=== PATIENT | male | born 1965 | race Caucasian/White ===

== ENCOUNTER 2018-03-29 08:07 | Emergency (ER) | payer BC ==
[2018-03-29 08:27] VITALS: BP 134/92
[2018-03-29] MEDS ORDERED: Acetaminophen 325 MG Tab PO ONE (08:42)
--- NOTE | 2018-03-29 09:28 | CT ---
CT abdomen and pelvis Technique: Multiple axial sections were obtained from above the dome of the diaphragm inferiorly through the pubic symphysis. Intravenous and oral contrast was not utilized. Study has been performed as a ureteral stone protocol. Findings: Kidneys show no abnormal calcifications. No ureteral dilatation or ureteral stone is seen. Inflammatory change is identified around a portion of the sigmoid colon. There is bowel wall thickening being seen within this portion of sigmoid colon. Findings most likely due to diverticulitis although endoscopy will be suggested. Slightly prominent lymph nodes are seen around the sigmoid colon. Proximal appendix slightly prominent in thickness at 9 mm. Distal end of appendix is normal in size measuring 5 mm. No inflammatory change is seen around the appendix. Visualized lung bases shows nothing acute. Noncontrast appearance of the liver appears within normal limits. Gallbladder contains no calcified gallstones. Spleen shows small calcified splenic granuloma which is incidental. Adrenal glands show no nodule. Pancreas appears within normal limits. Aorta shows atherosclerotic calcification which continues into the iliac vessels. No retroperitoneal adenopathy or mesenteric abnormalities are seen. No pelvic mass is seen. Bone window settings were reviewed which shows disc space narrowing and vacuum phenomena within the L4-L5 and L5-S1 disks. Bilateral spondylitic defects are seen at L5-S1. Impression: 1. Bowel wall thickening and inflammatory change within and around portion of the sigmoid colon. Adjacent enlarged lymph nodes are seen around this portion of colon. Findings most likely due to diverticulitis, although endoscopy is strongly recommended to exclude an carcinoma. 2. Prominent size of the base of the appendix with distal end of the appendix appearing normal. This is most likely due to normal variant as no inflammatory change is seen around the appendix. In addition, it appears that the patient has left-sided symptoms. 3. No renal calculi, ureteral dilatation or ureteral stone is seen. 4. Other incidental findings. Diagnostic code #9
--- NOTE | 2018-03-29 09:46 | EDM.PDOC ---
ED HPI GENERAL MEDICAL PROBLEM - General Chief Complaint: Back Pain or Injury Stated Complaint: KIDNEY PAIN Time Seen by Provider: 03/29/18 08:40 Source of Information: Reports: Patient, RN Notes Reviewed - History of Present Illness INITIAL COMMENTS - FREE TEXT/NARRATIVE: 52-year-old male comes in with primarily left low back pain that has been getting worse, not going away. First started about a week ago area he is not aware of any particular injury. 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 He is had some occasional chills, one episode of mild nausea but no vomiting or diarrhea. No obvious fever. No voiding symptomatology. Pain is pretty steady may be slightly worse with motion but does not go away at rest. There has not been any significant abdominal pain. No radiation of pain down either leg. Bilateral Lower Back Pain Score (Numeric/FACES): 3 - Related Data Allergies Allergy/AdvReac Type Severity Reaction Status Date / Time No Known Allergies Allergy Verified 03/29/18 08:21 Home Meds: Home Meds Cholecalciferol (Vitamin D3) [Vitamin D3] 2,000 unit PO DAILY 11/01/15 [History] Glucosamine/D3/Boswellia Priscilla [Osteo Bi-Flex Caplet] 1 tab PO DAILY 11/01/15 [ History] Levofloxacin [Levaquin] 500 mg PO DAILY #10 tablet 03/29/18 [Rx] metroNIDAZOLE [Flagyl] 500 mg PO Q8H #30 tab 03/29/18 [Rx] Past Medical History - Past Health History Medical/Surgical History: Denies Medical/Surgical History HEENT History: Reports: Allergic Rhinitis, Sinusitis Cardiovascular History: Reports: None Other Respiratory History: Severe snoring without apnea Gastrointestinal History: Reports: GERD Genitourinary History: Reports: None Musculoskeletal History: Reports: Arthritis Neurological History: Reports: None Psychiatric History: Reports: None Endocrine/Metabolic History: Reports: Obesity/BMI 30+ Social & Family History - Tobacco Use Smoking Status *Q: Current Every Day Smoker Years of Tobacco use: 20 Packs/Tins Daily: 0.5 - Caffeine Use Caffeine Use: Reports: Coffee, Energy Drinks ED ROS GENERAL - Review of Systems Review Of Systems: See Below Constitutional: Reports: Chills. Denies: Fever, Diaphoresis (Gone) HEENT: Reports: No Symptoms Respiratory: Denies: Shortness of Breath Cardiovascular: Denies: Chest Pain GI/Abdominal: Reports: Nausea. Denies: Abdominal Pain, Constipation, Diarrhea, Hematochezia, Melena, Vomiting (Gone) : Reports: No Symptoms Musculoskeletal: Reports: Back Pain (Primarily left low back) Skin: Reports: No Symptoms Neurological: Reports: No Symptoms ED EXAM,LOWER BACK PAIN/INJURY - Physical Exam Exam: See Below General Appearance: Alert, Mild Distress Eye Exam: Bilateral Eye: PERRL Throat/Mouth: Normal Inspection Head: Atraumatic Neck: Supple Respiratory/Chest: No Respiratory Distress, Lungs Clear, Normal Breath Sounds Cardiovascular: Regular Rate, Rhythm GI/Abdominal: Soft, Tender (For mild tenderness left lower abdomen, abdomen otherwise soft and nontender). No: Guarding, Rebound Extremities: Normal Inspection, Normal Range of Motion Neurological: Alert, No Motor/Sensory Deficits, Oriented x 3 Skin Exam: Warm, Dry, Normal Color Course - Vital Signs Last Recorded V/S: Last Vital Signs Temp 98.4 F 03/29/18 08:23 Pulse 105 H 03/29/18 08:23 Resp 13 03/29/18 08:23 BP 134/92 H 03/29/18 08:23 Pulse Ox 98 03/29/18 08:23 - Orders/Labs/Meds Labs: Laboratory Tests 03/29/18 Range/Units 08:51 Urine Color Yellow (Yellow) Urine Appearance Clear (Clear) Urine pH 6.0 (5.0-8.0) Ur Specific [place] 1.025 (1.005-1.030) Urine Protein Negative (Negative) Urine Glucose (UA) Negative (Negative) Urine Ketones Negative (Negative) Urine Occult Blood Negative (Negative) Urine Nitrite Negative (Negative) Urine Bilirubin Negative (Negative) Urine Urobilinogen 0.2 (0.2-1.0) Ur Leukocyte Esterase Negative (Negative) Urine RBC 0-5 (0-5) /hpf Urine WBC Not seen (0-5) /hpf Ur Epithelial Cells 0-5 (0-5) /hpf Urine Bacteria Not seen (FEW) /hpf Urine Mucus Few (FEW) /hpf Meds: Medications Discontinued Medications Generic Name Dose Route Start Last Admin Trade Name Freq PRN Reason Stop Dose Admin Acetaminophen 975 mg 03/29/18 08:42 03/29/18 08:47 Tylenol PO 03/29/18 08:43 975 mg NOW ONE Administration - Re-Assessments/Exams Free Text/Narrative Re-Assessment/Exam: 03/29/18 10:14 Discomfort was bad enough that his states he's spent yesterday "in bed" which would be very atypical for him. I felt CT scan necessary to rule out kidney stone or other pathology left back or abdomen. No evidence for a stone but he does have inflammatory change around an area of the sigmoid colon was some bowel wall thickening. Findings most likely due to diverticulitis but need to consider that this could represent early carcinoma. I did discuss this with Dr. Willis, surgeon internal combustion engine subassembler for us this weekend. Recommend treating the diverticulitis and then follow-up colonoscopy within 3-4 weeks as recommended also by radiologist. See radiology report for details. We'll start him on Levaquin and Flagyl. Discharge instructions as documented. Departure - Departure Time of Disposition: 10:03 Disposition: Home, Self-Care 01 Condition: Fair Clinical Impression: Diverticulitis - Discharge Information Prescriptions: Levofloxacin [Levaquin] 500 mg PO DAILY #10 tablet metroNIDAZOLE [Flagyl] 500 mg PO Q8H #30 tab Instructions: Diverticulitis, [id number] Referrals: PCP,None [Primary Care Provider] - Forms: ED Department Discharge, ED Return to Work/School Form Additional Instructions: Clear liquids and bland diet as tolerated, better to eat small amounts somewhat frequently, drink plenty of water to maintain hydration. Levaquin 500 mg daily for 10 days. Flagyl 500 mg 3 times daily also for 10 days. As discussed we want to treat the infection, inflammation now but you do need a follow-up colonoscopy in the next 3-4 weeks to rule out malignancy which is the other possibility that cannot be totally ruled out on the basis of the CT exam done today. I do recommend following up with Dr. Koch at [facility] or one of the surgeons at [facility] that will be able to do that for you. Call [phone] for appointment to see provider in about 5-7 days or next available appointment. If not able to get a timely appointment with one of these providers see one of our medical providers at our [facility] later next week, call [phone] for appointment. Return to ED as needed if symptoms worsening in any way.
== END 2018-03-29 10:30 | disposition home or self-care (01) ==
LOC: JD.ED 08:07
DX: K57.32 Diverticulitis of large intestine without perforation or abscess without bleeding (principal); K21.9 Gastro-esophageal reflux disease without esophagitis; F17.210 Nicotine dependence, cigarettes, uncomplicated; Z79.899 Other long term (current) drug therapy
CPT/HCPCS: 74176; 81001; 99284; A9270; 99283

== ENCOUNTER 2018-05-13 09:58 | Day surgery (SDC) | payer BC ==
[~2018-05-13 09:58] MED LIST: Lactated Ringers 1,000 ML IV SCH; Lidocaine 1% 4 ML ONE; Lidocaine 1%/Sod Bicarbonate in NS 8.4% 1 ML Syringe IDERM PRN; Midazolam 1 MG/ML 2 ML SDV ONE; Propofol 200 MG/20 ML SDV ONE; Sodium Chloride 0.9% 10 ML Syringe FLUSH PRN; fentaNYL 100 MCG/2 ML SDV ONE
--- NOTE | 2018-05-13 10:41 | PCM.PREANE ---
Preanesthetic Assessment - Anesthesia/Transfusion/Family Hx Anesthesia History: Prior Anesthesia Without Reaction Family History of Anesthesia Reaction: No Transfusion History: No Prior Transfusion(s) - Review of Systems General: No Symptoms Pulmonary: Other (smoker, 1/2 ppd. last smoked at 9 am) Cardiovascular: No Symptoms Gastrointestinal: Other (s/p divericulitis) - Physical Assessment NPO Status Date: 05/13/18 NPO Status Time: 05:00 Pulse: 82 O2 Sat by Pulse Oximetry: 96 Respiratory Rate: 16 Blood Pressure: 133/80 Vital Signs: Last Vital Signs Temp 36.3 C 05/13/18 10:15 Pulse 82 05/13/18 10:15 Resp 16 05/13/18 10:15 BP 133/80 05/13/18 10:15 Pulse Ox 96 05/13/18 10:15 Weight: 90.945 kg ASA Class: 2 Mental Status: Alert & Oriented x3 Airway Class: Mallampati = 2 Dentition: Reports: Normal Dentition Thyro-Mental Finger Breadths: 3 Mouth Opening Finger Breadths: 3 ROM/Head Extension: Full Lungs: Clear to Auscultation, Normal Respiratory Effort Cardiovascular: Regular Rate, Regular Rhythm - Allergies Allergies/Adverse Reactions: Allergies Allergy/AdvReac Type Severity Reaction Status Date / Time No Known Allergies Allergy Verified 05/12/18 15:41 - Blood Blood Available: No Product(s) Available: None - Anesthesia Plan Pre-Op Medication Ordered: None - Acknowledgements Anesthesia Type Planned: MAC Pt an Appropriate Candidate for the Planned Anesthesia: Yes Alternatives and Risks of Anesthesia Discussed w Pt/Guardian: Yes Pt/Guardian Understands and Agrees with Anesthesia Plan: Yes PreAnesthesia Questionnaire - Past Health History Medical/Surgical History: Denies Medical/Surgical History HEENT History: Reports: Allergic Rhinitis, Impaired Vision, Sinusitis Cardiovascular History: Reports: None Other Respiratory History: Severe snoring without apnea Gastrointestinal History: Reports: Diverticulosis, GERD Genitourinary History: Reports: None 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 Musculoskeletal History: Reports: Arthritis, Other (See Below) Other Musculoskeletal History: left meniscus tear, arthritis, left chondromalacia patellae, knee surgery Neurological History: Reports: None Psychiatric History: Reports: None Endocrine/Metabolic History: Reports: Obesity/BMI 30+ Hematologic History: Reports: None Immunologic History: Reports: None Oncologic (Cancer) History: Reports: None Dermatologic History: Reports: None - Past Surgical History Head Surgeries/Procedures: Reports: None Cardiovascular Surgical History: Reports: None Respiratory Surgical History: Reports: None GI Surgical History: Reports: None Female Surgical History: Reports: None Male Surgical History: Reports: None Endocrine Surgical History: Reports: None Neurological Surgical History: Reports: None Musculoskeletal Surgical History: Reports: None - SUBSTANCE USE Smoking Status *Q: Current Every Day Smoker Recreational Drug Use History: No - HOME MEDS Home Medications: Home Meds Cholecalciferol (Vitamin D3) [Vitamin D3] 2,000 unit PO DAILY 11/01/15 [History] Glucosamine/D3/Boswellia Priscilla [Osteo Bi-Flex Caplet] 1 tab PO DAILY 11/01/15 [ History] Bifidobacter. Bifidum/B.Longum [Florajen Bifidoblend] 460 mg PO DAILY 05/12/18 [ History] Calcium Carbonate [Calcium] 500 mg PO DAILY 05/12/18 [History] - CURRENT (IN HOUSE) MEDS Current Meds: Current Medications Lactated Ringer's (Ringers, Lactated) 1,000 mls @ 125 mls/hr IV ASDIRECTED DAVE Stop: 05/13/18 23:00 Lidocaine/Sodium Bicarbonate (Buffered Lidocaine 1% In Ns 8.4%) 0.25 ml IDERM ONETIME PRN PRN Reason: Prior to IV Start Stop: 05/13/18 18:00 Sodium Chloride (Saline Flush) 10 ml FLUSH ASDIRECTED PRN PRN Reason: Keep Vein Open Stop: 05/13/18 18:00 Discontinued Medications Fentanyl (Sublimaze) Confirm Administered Dose 100 mcg .ROUTE .STK-MED ONE Stop: 05/13/18 09:45 Lidocaine HCl (Xylocaine-Mpf 1%) Confirm Administered Dose 4 mls @ as directed .ROUTE .STK-MED ONE Stop: 05/13/18 09:45 Midazolam HCl (Versed 1 Mg/Ml) Confirm Administered Dose 2 mg .ROUTE .STK-MED ONE Stop: 05/13/18 09:45 Propofol (Diprivan 20 Ml) Confirm Administered Dose 200 mg .ROUTE .STK-MED ONE Stop: 05/13/18 09:45
[2018-05-13] MEDS ORDERED: Propofol 200 MG/20 ML SDV ONE ×2 (11:32→11:49)
--- NOTE | 2018-05-13 12:06 | PCM48HPAN ---
Post Anesthesia Note - EVALUATION WITHIN 48HRS OF ANESTHETIC Vital Signs in Normal Range: Yes Patient Participated in Evaluation: Yes Respiratory Function Stable: Yes Airway Patent: Yes Cardiovascular Function Stable: Yes Hydration Status Stable: Yes Pain Control Satisfactory: Yes Nausea and Vomiting Control Satisfactory: Yes Mental Status Recovered: Yes Pulse Rate: 82 SaO2: 95 Resp Rate: 16 Temperature: 36.3 C Blood Pressure: 133/80
--- NOTE | 2018-05-13 12:15 | PCM.OPNOTE ---
- General Post-Op/Procedure Note Date of Surgery/Procedure: 05/13/18 Operative Procedure(s): colonoscopy with biopsy, and tattooing of sigmoid colon lesion Findings: 1) multiple small <5 mm sessile polyps in the cecum, removed by cold forceps polypectomy 2) small <5 mm sessile polyp in the proximal ascending colon, removed by cold forceps polypectomy 3) confluence of polyps in the sigmoid colon (at approximately 45 cm), biopsy obtained and tattooing of the proximal and distal extent Pre Op Diagnosis: recent initial episode of sigmoid diverticulitis Post-Op Diagnosis: mulitple colonic polyps, sigmoid colon lesion Primary Surgeon: Thomas Otto Complications: None Condition: Good Free Text/Narrative:: Indications for surgery: The patient is a 52 yo male, who developed a recent episode of sigmoid colon diverticulitis, initial episode. The patient was consented for colonoscopy with possible biopsy. Indications, risks, and benefits were discussed with the patient in detail. Description of procedure: After surgical consent was verified, the patient was brought to the main OR. A surgical time-out was performed to verify proper patient and proper procedure. Anesthesia performed monitored anesthesia care. A digital rectal exam was performed, which was normal. The colonoscope was inserted into the anus and advanced through the colon to the cecum. The terminal ileum was intubated, and it appeared normal. Location of the cecum was confirmed by presence of the appendiceal orifice and by presence of the ileocecal valve. The scope was then withdrawn, with inspection of the colonic mucosa. There were multiple small polyps <5 mm in the cecum, removed by cold forceps polypectmy There was a small <5 mm sessile polyp in the proximal ascending colon, removed by cold forceps polypectomy. There was a confluence of polyps/mass-like lesion in the sigmoid colon, located at approximately 45 cm from the anus, measuring about 1/4 the circumference of the colonic lumen, non-obstructing. Multiple biopsies were obtained. Carbon tattooing of the mass was performed at the distal and proximal extents. There was no sigmoid diverticulosis. Retroflexion was performed in the rectum. The remainder of the colon and rectum was normal. Withdrawal time was 15 minutes, including time spent performing polypectomies. There was minimal. Prep was good. The patient tolerated the procedure well, was brought out of anesthesia, and transported to the PACU in stable condition. Thomas Otto M.D., F.A.C.S. General Surgery
[2018-05-13 12:33] VITALS: BP 133/70
== END 2018-05-13 12:46 | disposition home or self-care (01) ==
LOC: JD.SDS 09:58
PROVIDERS: ATTEND Student in an Organized Health Care Education/Training Program
DX: K57.32 Diverticulitis of large intestine without perforation or abscess without bleeding (principal); D12.4 Benign neoplasm of descending colon; K51.40 Inflammatory polyps of colon without complications; F17.210 Nicotine dependence, cigarettes, uncomplicated; E66.9 Obesity, unspecified; Z68.30 Body mass index [BMI] 30.0-30.9, adult; K21.9 Gastro-esophageal reflux disease without esophagitis; M17.12 Unilateral primary osteoarthritis, left knee; Z79.899 Other long term (current) drug therapy
CPT/HCPCS: 45380; 45381; J2001; J2250; J2704; J7120; 00811; J3010

== ENCOUNTER 2018-12-14 13:41 | Inpatient (IN) | payer BC ==
[2018-12-14] MEDS ORDERED: Sodium Chloride 0.9% 1,000 ML IV ONE ×3 (14:12→16:50)
[2018-12-14] MEDS: Sodium Chloride 0.9% 10 ML Syringe FLUSH PRN ×2 (14:25→15:51)
--- NOTE | 2018-12-14 14:27 | EDM.PDOC ---
ED HPI GENERAL MEDICAL PROBLEM - General Chief Complaint: Gastrointestinal Problem Stated Complaint: DIARRHEA,LOSS OF ROSALINDA Time Seen by Provider: 12/14/18 13:58 Source of Information: Reports: Patient, RN Notes Reviewed History Limitations: Reports: No Limitations - History of Present Illness INITIAL COMMENTS - FREE TEXT/NARRATIVE: Patient is a 53-year-old male who presents to the ED for the evaluation of diarrhea. Patient notes he's had diarrhea for the last 6 weeks, this is been associated with loss of appetite, constant feelings of being weak and tired, a weight loss of 20 pounds the last 3 weeks. He notes that he wakes up at night entirely drenched in sweat, and sometimes gets a chill that he can't stop shaking. He states that his primary care provider was Angelika Childs, however he has not sought care for any sort of issues since her departure from this facility. He states that he is still able to pass gas, and that he has some mild abdominal discomfort when he uses the restroom, but attributes this to passing gas. 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 He also notes a history of an anal fissure. He's not noticed any sort of blood in the diarrhea, and he states that he has multiple diarrhea stools daily. - Related Data Allergies Allergy/AdvReac Type Severity Reaction Status Date / Time No Known Allergies Allergy Verified 12/14/18 14:07 Home Meds: Home Meds . 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 Musculoskeletal History: Reports: Arthritis, Other (See Below) Other Musculoskeletal History: left meniscus tear, arthritis, left chondromalacia patellae, knee surgery Neurological History: Reports: None Psychiatric History: Reports: None Endocrine/Metabolic History: Reports: Obesity/BMI 30+ Hematologic History: Reports: None Immunologic History: Reports: None Oncologic (Cancer) History: Reports: None Dermatologic History: Reports: None - Past Surgical History Head Surgeries/Procedures: Reports: None Cardiovascular Surgical History: Reports: None Respiratory Surgical History: Reports: None GI Surgical History: Reports: Colon (mass removal with partial colon resection) Male Surgical History: Reports: None Endocrine Surgical History: Reports: None Neurological Surgical History: Reports: None Musculoskeletal Surgical History: Reports: None Social & Family History - Tobacco Use Smoking Status *Q: Never Smoker - Caffeine Use Caffeine Use: Reports: None - Recreational Drug Use Recreational Drug Use: No ED ROS GENERAL - Review of Systems Review Of Systems: See Below Constitutional: Reports: Chills, Malaise, Weakness, Fatigue, Night Sweats, Decreased Appetite, Weight Loss. Denies: Fever HEENT: Reports: No Symptoms Respiratory: Denies: Shortness of Breath Cardiovascular: Denies: Chest Pain Endocrine: Reports: No Symptoms GI/Abdominal: Reports: Abdominal Pain (with bowel movements), Nausea. Denies: Vomiting : Reports: No Symptoms Musculoskeletal: Reports: No Symptoms Skin: Reports: No Symptoms Neurological: Reports: No Symptoms Psychiatric: Reports: No Symptoms Hematologic/Lymphatic: Reports: No Symptoms Immunologic: Reports: No Symptoms ED EXAM, GI/ABD - Physical Exam Exam: See Below Exam Limited By: No Limitations General Appearance: Alert, WD/WN, No Apparent Distress Eyes: Bilateral: Normal Appearance Ears: Normal External Exam Nose: Normal Inspection Throat/Mouth: Normal Inspection, Normal Lips, Normal Teeth, Normal Gums, Normal Oropharynx, Normal Voice, No Airway Compromise Head: Atraumatic, Normocephalic Neck: Normal Inspection Respiratory/Chest: No Respiratory Distress, Lungs Clear, Normal Breath Sounds, No Accessory Muscle Use, Chest Non-Tender Cardiovascular: Normal Peripheral Pulses, Regular Rate, Rhythm, No Murmur GI/Abdominal Exam: Normal Bowel Sounds, Soft, Non-Tender, No Distention, No Mass Extremities: Normal Inspection, Normal Capillary Refill Neurological: Alert, Oriented, Normal Cognition, No Motor/Sensory Deficits Psychiatric: Normal Affect, Normal Mood Skin Exam: Warm, Dry, Intact, Normal Color, No Rash EKG INTERPRETATION EKG Date: 12/14/18 Time: 14:08 Rhythm: Other (Sinus tach) Rate (Beats/Min): 145 White: Normal P-Wave: Present QRS: Normal ST-T: Normal QT: Normal EKG Interpretation Comments: reviewed by Dr. Jaramillo and myself. Course - Vital Signs Last Recorded V/S: Last Vital Signs Temp 97.9 F 12/14/18 14:03 Pulse 155 H 12/14/18 14:03 Resp 20 12/14/18 14:03 BP 130/115 H 12/14/18 14:03 Pulse Ox 97 12/14/18 14:03 - Orders/Labs/Meds Orders: Active Orders 24 hr Category Date Time Status Admission Status [Patient Status] [ADT] Routine ADT 12/14/18 17:32 Ordered EKG Documentation Completion [RC] STAT Care 12/14/18 14:10 Active Peripheral IV Care [RC] . DIRECTED Care 12/14/18 14:14 Active C DIFFICILE BY PCR W/NAP1 [MOLEC] Stat Lab 12/14/18 16:49 Ordered CULTURE BLOOD [BC] Stat Lab 12/14/18 15:00 Received CULTURE BLOOD [BC] Stat Lab 12/14/18 15:08 Received CULTURE STOOL + SHIGATOX [RM] Stat Lab 12/14/18 16:35 Ordered OVA PARASITE EXAM Stat Lab 12/14/18 16:35 Ordered UA W/MICROSCOPIC [URIN] Stat Lab 12/14/18 14:10 Ordered WBC, STOOL [OP] Stat Lab 12/14/18 16:35 Ordered Levofloxacin/Dextrose 5%-Water [Levaquin in D5W 500 MG/ Med 12/14/18 17:34 Ordered 100 ML] 500 mg Premix Bag 1 bag IV ONETIME Sodium Chloride 0.9% [Normal Saline] 1,000 ml Med 12/14/18 16:50 Ordered IV ONETIME Sodium Chloride 0.9% [Saline Flush] Med 12/14/18 14:12 Active 10 ml FLUSH ASDIRECTED PRN Blood Culture x2 Reflex Set [OM.PC] Stat Oth 12/14/18 14:10 Ordered Peripheral IV Insertion Adult [OM.PC] Stat Oth 12/14/18 14:12 Ordered Medication Orders Sodium Chloride (Normal Saline) 1,000 mls @ 999 mls/hr IV ONETIME ONE Stop: 12/14/18 17:50 Last Admin: 12/14/18 17:15 Dose: 999 mls/hr Levofloxacin/Dextrose 500 mg/ (Premix) 100 mls @ 100 mls/hr IV ONETIME ONE Stop: 12/14/18 18:33 Sodium Chloride (Saline Flush) 10 ml FLUSH ASDIRECTED PRN PRN Reason: Keep Vein Open Last Admin: 12/14/18 15:51 Dose: 10 ml Admin: 12/14/18 14:25 Dose: 10 ml Labs: Laboratory Tests 12/14/18 12/14/18 12/14/18 Range/Units 14:10 14:10 14:10 WBC 19.76 H (4.23-9.07) K/mm3 RBC 5.00 (4.63-6.08) M/mm3 Hgb 14.0 (13.7-17.5) gm/dl Hct 42.3 (40.1-51.0) % MCV 84.6 D (79.0-92.2) fl MCH 28.0 (25.7-32.2) pg MCHC 33.1 (32.2-35.5) g/dl RDW Std Deviation 39.8 (35.1-43.9) fL Plt Count 595 H D (163-337) K/mm3 MPV 8.7 L (9.4-12.3) fl Neutrophils % (Manual) 69 H (40-60) % Band Neutrophils % 0 (0-10) % Lymphocytes % (Manual) 20 (20-40) % Atypical Lymphs % 0 % Monocytes % (Manual) 11 H (2-10) % Eosinophils % (Manual) 0 L (0.8-7.0) % Basophils % (Manual) 0 L (0.2-1.2) Platelet Estimate Increased Plt Morphology Comment Normal RBC Morph Comment Normal PT 12.1 H (9.7-12.0) SECONDS INR 1.12 APTT 26 (22-31) SECONDS Sodium 135 L (136-145) mEq/L Potassium 3.6 (3.5-5.1) mEq/L Chloride 95 L (98-107) mEq/L Carbon Dioxide 24 (21-32) mEq/L Anion Gap 19.6 H (5-15) BUN 15 (7-18) mg/dL Creatinine 1.2 (0.7-1.3) mg/dL Est Cr Clr Drug Dosing 70.37 mL/min Estimated GFR (MDRD) > 60 (>60) mL/min BUN/Creatinine Ratio 12.5 L (14-18) Glucose 150 H (74-106) mg/dL Lactic Acid (0.4-2.0) mmol/L Calcium 9.6 (8.5-10.1) mg/dL Magnesium 2.2 (1.8-2.4) mg/dl Total Bilirubin 0.5 (0.2-1.0) mg/dL AST 19 (15-37) U/L ALT 35 (16-63) U/L Alkaline Phosphatase 99 (46-116) U/L Troponin I < 0.017 (0.00-0.056) ng/mL C-Reactive Protein (<1.0) mg/dL NT-Pro-B Natriuret Pep (0-125) pg/mL Total Protein 7.5 (6.4-8.2) g/dl Albumin 2.6 L (3.4-5.0) g/dl Globulin 4.9 gm/dL Albumin/Globulin Ratio 0.5 L (1-2) 12/14/18 12/14/18 12/14/18 Range/Units 14:10 14:10 15:00 WBC (4.23-9.07) K/mm3 RBC (4.63-6.08) M/mm3 Hgb (13.7-17.5) gm/dl Hct (40.1-51.0) % MCV (79.0-92.2) fl MCH (25.7-32.2) pg MCHC (32.2-35.5) g/dl RDW Std Deviation (35.1-43.9) fL Plt Count (163-337) K/mm3 MPV (9.4-12.3) fl Neutrophils % (Manual) (40-60) % Band Neutrophils % (0-10) % Lymphocytes % (Manual) (20-40) % Atypical Lymphs % % Monocytes % (Manual) (2-10) % Eosinophils % (Manual) (0.8-7.0) % Basophils % (Manual) (0.2-1.2) Platelet Estimate Plt Morphology Comment RBC Morph Comment PT (9.7-12.0) SECONDS INR APTT (22-31) SECONDS Sodium (136-145) mEq/L Potassium (3.5-5.1) mEq/L Chloride (98-107) mEq/L Carbon Dioxide (21-32) mEq/L Anion Gap (5-15) BUN (7-18) mg/dL Creatinine (0.7-1.3) mg/dL Est Cr Clr Drug Dosing mL/min Estimated GFR (MDRD) (>60) mL/min BUN/Creatinine Ratio (14-18) Glucose (74-106) mg/dL Lactic Acid 2.8 H (0.4-2.0) mmol/L Calcium (8.5-10.1) mg/dL Magnesium (1.8-2.4) mg/dl Total Bilirubin (0.2-1.0) mg/dL AST (15-37) U/L ALT (16-63) U/L Alkaline Phosphatase (46-116) U/L Troponin I (0.00-0.056) ng/mL C-Reactive Protein 21.1 H* (<1.0) mg/dL NT-Pro-B Natriuret Pep 101 (0-125) pg/mL Total Protein (6.4-8.2) g/dl Albumin (3.4-5.0) g/dl Globulin gm/dL Albumin/Globulin Ratio (1-2) Meds: Medications Generic Name Dose Route Start Last Admin Trade Name Freq PRN Reason Stop Dose Admin Sodium Chloride 1,000 mls @ 999 mls/hr 12/14/18 16:50 12/14/18 17:15 Normal Saline IV 12/14/18 17:50 999 mls/hr ONETIME ONE Administration Levofloxacin/Dextrose 500 mg/ 100 mls @ 100 mls/hr 12/14/18 17:34 Premix IV 12/14/18 18:33 ONETIME ONE Sodium Chloride 10 ml 12/14/18 14:12 12/14/18 15:51 Saline Flush FLUSH 10 ml ASDIRECTED PRN Administration Keep Vein Open Discontinued Medications Generic Name Dose Route Start Last Admin Trade Name Freq PRN Reason Stop Dose Admin Diatrizoate Meglum/Diatrizoate Sod 90 ml 12/14/18 14:43 12/14/18 15:51 Gastrografin 37% PO 12/14/18 14:44 90 ml ONETIME ONE Administration Sodium Chloride 1,000 mls @ 999 mls/hr 12/14/18 14:12 12/14/18 14:25 Normal Saline IV 12/14/18 15:12 999 mls/hr ONETIME ONE Administration Sodium Chloride 1,000 mls @ 999 mls/hr 12/14/18 15:24 12/14/18 15:38 Normal Saline IV 12/14/18 16:24 999 mls/hr ONETIME ONE Administration Iopamidol 100 ml 12/14/18 14:43 12/14/18 15:51 Isovue-300 (61%) IVPUSH 12/14/18 14:44 100 ml ONETIME ONE Administration - Re-Assessments/Exams Free Text/Narrative Re-Assessment/Exam: 12/14/18 14:26 Patient presents to the ED for evaluation of diarrhea 6 weeks. Patient was identified as a possible sepsis risk at time of triage, I did order labs to reflect this risk, patient's EKG shows sinus tachycardia but no acute ischemic changes at this time are noted. This was reviewed by myself and Dr. Jaramillo. His calculated fluid bolus should be at least 2,640 12/14/18 15:33 Patient's labs are done and his white count is markedly increased at 19,700 with 69% neutrophils. His anion gap elevated as well at 19.6. His sodium was only mildly low at 135. His chest x-ray demonstrated some atelectasis, but no other acute changes were noted. 12/14/18 16:38 Upon further questioning of the patient, he denies any recent antibiotic use, history of Crohn's or IBS, He notes that he and his family did make a recent trip to [place] and [place] before this sickness hit him. He notes that they did eat quite a bit of seafood during this trip. I have ordered stool studies if he should be able to provide us with a sample. His CT demonstrated bowel wall thickening with very slight surrounding inflammatory changes involving the majority of the colon that ia consistent with nonspecific colitis. No other acute abnormalities were noted. Patient is less tachycardic after a liter and a half of fluids. His heart rate has improved and is down to 113 bpm. 12/14/18 17:35 Patient's case was discussed with Dr. Patino, and he is accepting the patient for hospital admission, he suggests starting IV levofloxacin for empiric therapy and stool cultures, for which I have already ordered. Patient was made aware that he is going to be hospitalized for IV fluid resuscitation and IV antibiotics. Patient states he has a code level 1. Departure - Departure Time of Disposition: 17:36 Disposition: Admitted As Inpatient 65 Condition: Fair Clinical Impression: Colitis - Discharge Information *PRESCRIPTION DRUG MONITORING PROGRAM REVIEWED*: No *COPY OF PRESCRIPTION DRUG MONITORING REPORT IN PATIENT EVANGELINA: No Referrals: PCP,None [Primary Care Provider] - Forms: ED Department Discharge - My Orders Last 24 Hours: My Active Orders 12/14/18 14:10 EKG Documentation Completion [RC] STAT UA W/MICROSCOPIC [URIN] Stat Blood Culture x2 Reflex Set [OM.PC] Stat 12/14/18 14:12 Sodium Chloride 0.9% [Saline Flush] 10 ml FLUSH ASDIRECTED PRN Peripheral IV Insertion Adult [OM.PC] Stat 12/14/18 14:14 Peripheral IV Care [RC] . DIRECTED 12/14/18 15:00 CULTURE BLOOD [BC] Stat 12/14/18 15:08 CULTURE BLOOD [BC] Stat 12/14/18 16:35 CULTURE STOOL + SHIGATOX [RM] Stat OVA PARASITE EXAM Stat WBC, STOOL [OP] Stat 12/14/18 16:49 C DIFFICILE BY PCR W/NAP1 [MOLEC] Stat 12/14/18 16:50 Sodium Chloride 0.9% [Normal Saline] 1,000 ml IV ONETIME 12/14/18 17:32 Admission Status [Patient Status] [ADT] Routine 12/14/18 17:34 Levofloxacin/Dextrose 5%-Water [Levaquin in D5W 500 MG/100 ML] 500 mg Premix Bag 1 bag IV ONETIME - Assessment/Plan Last 24 Hours: My Active Orders 12/14/18 14:10 EKG Documentation Completion [RC] STAT UA W/MICROSCOPIC [URIN] Stat Blood Culture x2 Reflex Set [OM.PC] Stat 12/14/18 14:12 Sodium Chloride 0.9% [Saline Flush] 10 ml FLUSH ASDIRECTED PRN Peripheral IV Insertion Adult [OM.PC] Stat 12/14/18 14:14 Peripheral IV Care [RC] . DIRECTED 12/14/18 15:00 CULTURE BLOOD [BC] Stat 12/14/18 15:08 CULTURE BLOOD [BC] Stat 12/14/18 16:35 CULTURE STOOL + SHIGATOX [RM] Stat OVA PARASITE EXAM Stat WBC, STOOL [OP] Stat 12/14/18 16:49 C DIFFICILE BY PCR W/NAP1 [MOLEC] Stat 12/14/18 16:50 Sodium Chloride 0.9% [Normal Saline] 1,000 ml IV ONETIME 12/14/18 17:32 Admission Status [Patient Status] [ADT] Routine 12/14/18 17:34 Levofloxacin/Dextrose 5%-Water [Levaquin in D5W 500 MG/100 ML] 500 mg Premix Bag 1 bag IV ONETIME
[2018-12-14] MEDS ORDERED: Diatrizoate Meglumine/Diatrizoate Sodium 37% 120 ML Bottle PO ONE (14:43)
[2018-12-14] MEDS ORDERED: Iopamidol 612 MG/ML 100 ML Bottle IVPUSH ONE (14:43)
--- NOTE | 2018-12-14 15:00 | CR ---
Chest: Portable view of the chest was obtained. Comparison: No prior chest x-ray is available. Heart size and mediastinum are normal. Slight atelectasis is noted overlying the left cardiac apex. Lungs otherwise are clear. Bony structures are grossly intact. Impression: 1. Slight atelectasis as noted above. 2. Nothing acute is appreciated on portable chest x-ray. Diagnostic code #2
--- NOTE | 2018-12-14 16:12 | CT ---
CT abdomen and pelvis Technique: Multiple axial sections were obtained from above the dome of the diaphragm inferiorly through the pubic symphysis. Intravenous and oral contrast was utilized. Delayed images were obtained through the bladder. Comparison: Prior noncontrast CT study of the abdomen and pelvis performed as a ureteral stone protocol dated 03/29/18. Findings: There is bowel wall thickening with very slight surrounding inflammatory change involving the majority of the colon. This is felt compatible with a nonspecific colitis. Appendix is felt to be visualized and is normal in size. Visualized lung bases show nothing acute. Liver contains no focal abnormality. Spleen appears within normal limits. Kidneys show symmetric contrast enhancement and show no hydronephrosis or mass. Gallbladder is mostly collapsed but shows no calcifications to indicate calcified gallstones. Pancreas is within normal limits. Adrenal glands show no nodule. Aorta shows atherosclerotic calcification which continues into the iliac vessels. No aneurysm is seen. No retroperitoneal adenopathy or mesenteric abnormalities are seen. No pelvic mass or adenopathy is seen. No free fluid is seen. No other inflammatory change is seen. Delayed images shows contrast within the distal ureters and within the bladder. Bone window settings were reviewed which shows scattered degenerative change within the spine. Spondylolytic defects are noted at L5-S1 with minimal spondylolisthesis. Vacuum disc phenomena is seen within the L4-5 disc. Impression: 1. Bowel wall thickening throughout a large portion of the colon compatible with a nonspecific colitis. 2. Other findings which are believed to be incidental and nonacute as described above. Diagnostic code #3
[2018-12-14] MEDS ORDERED: Levofloxacin/Dextrose 5%-Water 500 MG in Premix Bag 1 BAG IV ONE (17:34)
[2018-12-14] MEDS: metroNIDAZOLE/Normal Saline 500 MG in Premix Bag 1 BAG IV SCH (18:41)
[2018-12-14] MEDS ORDERED: Acetaminophen/HYDROcodone 325-5 MG Tab PO PRN (19:40)
[2018-12-14] MEDS ORDERED: Ondansetron 4 MG/2 ML SDV IV PRN (19:40)
[2018-12-14] MEDS ORDERED: Sodium Chloride 0.9% 1,000 ML IV SCH (19:45)
[2018-12-14] MEDS: NS + KCl 20mEq/L 1,000 ML IV SCH (19:54)
[2018-12-14] MEDS: Acetaminophen 325 MG Tab PO PRN (19:58)
--- NOTE | 2018-12-14 20:00 | PCM.HP.2 ---
H&P History of Present Illness - General Date of Service: 12/14/18 Admit Problem/Dx: Admission Diagnosis/Problem Admission Diagnosis/Problem Colitis - History of Present Illness Initial Comments - Free Text/Narative: 53-year-old male who was admitted through the emergency room 6 week history of diarrhea. Patient states he is having for liquid stools per day, occasionally small amount of formed stool still present, without any blood, mucus, or fever. He does complain of night sweats for the last 2 weeks. He has on 2 separate occasions have blood on tissue and may be a few drips in the bowl. He was seen 2 weeks ago by his colon surgeon and diagnosed with an anal fissure. In May he had partial colon resection secondary to diverticulitis and mass. Mass apparently was not cancerous. Patient has not received any antibiotics since that time. Patient also denies any history of colitis other than diverticulitis and inflammatory bowel disease. He was in [place] for 2 weeks in June. Patient does complain of night sweats for the last 2 weeks. He states he wakes up and cold sweat. Patient did try Imodium one day without much success. Complains of weakness, loss of appetite, 20 pound weight loss in the last 3 weeks, and severe thirst. Patient does complain of constant stomach discomfort but no cramping. In the emergency room he was given 2 L of saline. Labs: White blood cell count 19.76, hemoglobin 14, platelets 595, INR 1.12, sodium 135, potassium 3.6, anion gap 19.6, BUN 15, creatinine 1.2, lactic acid 2.8 repeat 1.1, negative UA, stools positive for WBC. CT of the abdomen: Impression: 1. Bowel wall thickening throughout a large portion of the colon compatible with a nonspecific colitis. 2. Other findings which are believed to be incidental and nonacute... Patient was given Levaquin 500 mg IV in the emergency room. I was just informed by nursing that he just had a fever of 102. - Related Data Allergies/Adverse Reactions: Allergies Allergy/AdvReac Type Severity Reaction Status Date / Time No Known Allergies Allergy Verified 12/14/18 14:07 Home Medications: Home Meds . [No Known Home Meds] 12/14/18 [History] Past Medical History - Past Health History Medical/Surgical History: Denies Medical/Surgical History HEENT History: Reports: Allergic Rhinitis, Impaired Vision, Sinusitis Cardiovascular History: Reports: None Other Respiratory History: Severe snoring without apnea Gastrointestinal History: Reports: Diverticulosis, GERD Genitourinary History: Reports: None HOT BALLER History: Reports: None Musculoskeletal History: Reports: Arthritis, Other (See Below) Other Musculoskeletal History: left meniscus tear, arthritis, left chondromalacia patellae, knee surgery Neurological History: Reports: None Psychiatric History: Reports: None Endocrine/Metabolic History: Reports: Obesity/BMI 30+ Hematologic History: Reports: None Immunologic History: Reports: None Oncologic (Cancer) History: Reports: None Dermatologic History: Reports: None - Past Surgical History Head Surgeries/Procedures: Reports: None Cardiovascular Surgical History: Reports: None Respiratory Surgical History: Reports: None GI Surgical History: Reports: Colon (mass removal with partial colon resection) Male Surgical History: Reports: None Endocrine Surgical History: Reports: None Neurological Surgical History: Reports: None Musculoskeletal Surgical History: Reports: None Social & Family History - Tobacco Use Smoking Status *Q: Never Smoker - Caffeine Use Caffeine Use: Reports: None - Recreational Drug Use Recreational Drug Use: No H&P Review of Systems - Review of Systems: Review Of Systems: ROS reveals no pertinent complaints other than HPI. Exam - Exam Exam: See Below - Vital Signs Vital Signs: Last Vital Signs Temp 99.1 F 12/14/18 18:31 Pulse 117 H 12/14/18 18:31 Resp 20 12/14/18 18:31 BP 129/73 12/14/18 18:31 Pulse Ox 98 12/14/18 18:31 Weight: 194 lb - Exam Quality Assessment: No: Supplemental Oxygen General: Alert, Oriented, 4 HEENT: Conjunctiva Clear, EOMI, Hearing Intact. No: Mucosa Moist & [place] ( Mucous membranes dry) Neck: Supple, Trachea Midline, 2 Lungs: Clear to Auscultation, Normal Respiratory Effort Cardiovascular: Regular Rate, Regular Rhythm GI/Abdominal Exam: Normal Bowel Sounds, Soft, No Organomegaly, No Abnormal Bruit , No Mass, Tender (Mild diffuse tenderness without guarding or rebound.) Back Exam: Normal Inspection, Full Range of Motion, NT Extremities: Normal Inspection, Normal Range of Motion, Non-Tender, No Pedal Edema, Normal Capillary Refill Skin: Warm, Dry, Intact Neurological: Cranial Nerves Intact Neuro Extensive - Mental Status: Alert, Oriented x3, Normal Mood/Affect, Normal Cognition, Memory Intact Neuro Extensive - Motor, Sensory, Reflexes: CN II-XII Intact Psychiatric: Alert, Normal Affect, Normal Mood - Patient Data Lab Results Last 24 hrs: Laboratory Results - last 24 hr 12/14/18 12/14/18 12/14/18 Range/Units 14:10 14:10 14:10 WBC 19.76 H (4.23-9.07) K/mm3 RBC 5.00 (4.63-6.08) M/mm3 Hgb 14.0 (13.7-17.5) gm/dl Hct 42.3 (40.1-51.0) % MCV 84.6 D (79.0-92.2) fl MCH 28.0 (25.7-32.2) pg MCHC 33.1 (32.2-35.5) g/dl RDW Std Deviation 39.8 (35.1-43.9) fL Plt Count 595 H D (163-337) K/mm3 MPV 8.7 L (9.4-12.3) fl Neutrophils % (Manual) 69 H (40-60) % Band Neutrophils % 0 (0-10) % Lymphocytes % (Manual) 20 (20-40) % Atypical Lymphs % 0 % Monocytes % (Manual) 11 H (2-10) % Eosinophils % (Manual) 0 L (0.8-7.0) % Basophils % (Manual) 0 L (0.2-1.2) Platelet Estimate Increased Plt Morphology Comment Normal RBC Morph Comment Normal PT 12.1 H (9.7-12.0) SECONDS INR 1.12 APTT 26 (22-31) SECONDS Sodium 135 L (136-145) mEq/L Potassium 3.6 (3.5-5.1) mEq/L Chloride 95 L (98-107) mEq/L Carbon Dioxide 24 (21-32) mEq/L Anion Gap 19.6 H (5-15) BUN 15 (7-18) mg/dL Creatinine 1.2 (0.7-1.3) mg/dL Est Cr Clr Drug Dosing 70.37 mL/min Estimated GFR (MDRD) > 60 (>60) mL/min BUN/Creatinine Ratio 12.5 L (14-18) Glucose 150 H (74-106) mg/dL Lactic Acid (0.4-2.0) mmol/L Calcium 9.6 (8.5-10.1) mg/dL Magnesium 2.2 (1.8-2.4) mg/dl Total Bilirubin 0.5 (0.2-1.0) mg/dL AST 19 (15-37) U/L ALT 35 (16-63) U/L Alkaline Phosphatase 99 (46-116) U/L Troponin I < 0.017 (0.00-0.056) ng/mL C-Reactive Protein (<1.0) mg/dL NT-Pro-B Natriuret Pep (0-125) pg/mL Total Protein 7.5 (6.4-8.2) g/dl Albumin 2.6 L (3.4-5.0) g/dl Globulin 4.9 gm/dL Albumin/Globulin Ratio 0.5 L (1-2) Urine Color (Yellow) Urine Appearance (Clear) Urine pH (5.0-8.0) Ur Specific [place] (1.005-1.030) Urine Protein (Negative) Urine Glucose (UA) (Negative) Urine Ketones (Negative) Urine Occult Blood (Negative) Urine Nitrite (Negative) Urine Bilirubin (Negative) Urine Urobilinogen (0.2-1.0) Ur Leukocyte Esterase (Negative) Urine RBC (0-5) /hpf Urine WBC (0-5) /hpf Ur Squamous Epith Cells (0-5) /hpf Urine Bacteria (FEW) /hpf Urine Mucus (FEW) /hpf 12/14/18 12/14/18 12/14/18 Range/Units 14:10 14:10 15:00 WBC (4.23-9.07) K/mm3 RBC (4.63-6.08) M/mm3 Hgb (13.7-17.5) gm/dl Hct (40.1-51.0) % MCV (79.0-92.2) fl MCH (25.7-32.2) pg MCHC (32.2-35.5) g/dl RDW Std Deviation (35.1-43.9) fL Plt Count (163-337) K/mm3 MPV (9.4-12.3) fl Neutrophils % (Manual) (40-60) % Band Neutrophils % (0-10) % Lymphocytes % (Manual) (20-40) % Atypical Lymphs % % Monocytes % (Manual) (2-10) % Eosinophils % (Manual) (0.8-7.0) % Basophils % (Manual) (0.2-1.2) Platelet Estimate Plt Morphology Comment RBC Morph Comment PT (9.7-12.0) SECONDS INR APTT (22-31) SECONDS Sodium (136-145) mEq/L Potassium (3.5-5.1) mEq/L Chloride (98-107) mEq/L Carbon Dioxide (21-32) mEq/L Anion Gap (5-15) BUN (7-18) mg/dL Creatinine (0.7-1.3) mg/dL Est Cr Clr Drug Dosing mL/min Estimated GFR (MDRD) (>60) mL/min BUN/Creatinine Ratio (14-18) Glucose (74-106) mg/dL Lactic Acid 2.8 H (0.4-2.0) mmol/L Calcium (8.5-10.1) mg/dL Magnesium (1.8-2.4) mg/dl Total Bilirubin (0.2-1.0) mg/dL AST (15-37) U/L ALT (16-63) U/L Alkaline Phosphatase (46-116) U/L Troponin I (0.00-0.056) ng/mL C-Reactive Protein 21.1 H* (<1.0) mg/dL NT-Pro-B Natriuret Pep 101 (0-125) pg/mL Total Protein (6.4-8.2) g/dl Albumin (3.4-5.0) g/dl Globulin gm/dL Albumin/Globulin Ratio (1-2) Urine Color (Yellow) Urine Appearance (Clear) Urine pH (5.0-8.0) Ur Specific [place] (1.005-1.030) Urine Protein (Negative) Urine Glucose (UA) (Negative) Urine Ketones (Negative) Urine Occult Blood (Negative) Urine Nitrite (Negative) Urine Bilirubin (Negative) Urine Urobilinogen (0.2-1.0) Ur Leukocyte Esterase (Negative) Urine RBC (0-5) /hpf Urine WBC (0-5) /hpf Ur Squamous Epith Cells (0-5) /hpf Urine Bacteria (FEW) /hpf Urine Mucus (FEW) /hpf 12/14/18 12/14/18 Range/Units 17:10 19:08 WBC (4.23-9.07) K/mm3 RBC (4.63-6.08) M/mm3 Hgb (13.7-17.5) gm/dl Hct (40.1-51.0) % MCV (79.0-92.2) fl MCH (25.7-32.2) pg MCHC (32.2-35.5) g/dl RDW Std Deviation (35.1-43.9) fL Plt Count (163-337) K/mm3 MPV (9.4-12.3) fl Neutrophils % (Manual) (40-60) % Band Neutrophils % (0-10) % Lymphocytes % (Manual) (20-40) % Atypical Lymphs % % Monocytes % (Manual) (2-10) % Eosinophils % (Manual) (0.8-7.0) % Basophils % (Manual) (0.2-1.2) Platelet Estimate Plt Morphology Comment RBC Morph Comment PT (9.7-12.0) SECONDS INR APTT (22-31) SECONDS Sodium (136-145) mEq/L Potassium (3.5-5.1) mEq/L Chloride (98-107) mEq/L Carbon Dioxide (21-32) mEq/L Anion Gap (5-15) BUN (7-18) mg/dL Creatinine (0.7-1.3) mg/dL Est Cr Clr Drug Dosing mL/min Estimated GFR (MDRD) (>60) mL/min BUN/Creatinine Ratio (14-18) Glucose (74-106) mg/dL Lactic Acid 1.1 (0.4-2.0) mmol/L Calcium (8.5-10.1) mg/dL Magnesium (1.8-2.4) mg/dl Total Bilirubin (0.2-1.0) mg/dL AST (15-37) U/L ALT (16-63) U/L Alkaline Phosphatase (46-116) U/L Troponin I (0.00-0.056) ng/mL C-Reactive Protein (<1.0) mg/dL NT-Pro-B Natriuret Pep (0-125) pg/mL Total Protein (6.4-8.2) g/dl Albumin (3.4-5.0) g/dl Globulin gm/dL Albumin/Globulin Ratio (1-2) Urine Color Yellow (Yellow) Urine Appearance Clear (Clear) Urine pH 6.0 (5.0-8.0) Ur Specific [place] 1.010 (1.005-1.030) Urine Protein Negative (Negative) Urine Glucose (UA) Negative (Negative) Urine Ketones Negative (Negative) Urine Occult Blood Negative (Negative) Urine Nitrite Negative (Negative) Urine Bilirubin Negative (Negative) Urine Urobilinogen 0.2 (0.2-1.0) Ur Leukocyte Esterase Negative (Negative) Urine RBC Not seen (0-5) /hpf Urine WBC Not seen (0-5) /hpf Ur Squamous Epith Cells 0-5 (0-5) /hpf Urine Bacteria Not seen (FEW) /hpf Urine Mucus Not seen (FEW) /hpf Result Diagrams: 12/14/18 14:10 12/14/18 14:10 Efren Results Last 24 hrs: Microbiology 12/14/18 18:55 Stool for WBCs - Final Stool / Feces Problem List Initiated/Reviewed/Updated: Yes Orders Last 24hrs: Active Orders 24 hr Category Date Time Status Admission Status [Patient Status] [ADT] Routine ADT 12/14/18 17:32 Active Ambulate [RC] PER UNIT ROUTINE Care 12/14/18 19:41 Active Oxygen Therapy [RC] PRN Care 12/14/18 19:41 Active RT Incentive Spirometry [RC] ASDIRECTED Care 12/14/18 19:52 Ordered Up ad Hedy [RC] ASDIRECTED Care 12/14/18 19:40 Active VTE/DVT Education [RC] PER UNIT ROUTINE Care 12/14/18 19:41 Active Vital Signs [RC] Q4H Care 12/14/18 19:41 Active Full Liquid Diet [DIET] Diet 12/14/18 Dinner Active C DIFFICILE BY PCR W/NAP1 [MOLEC] Stat Lab 12/14/18 18:55 Received CBC WITH AUTO DIFF [HEME] AM Lab 12/15/18 05:11 Ordered CBC WITH AUTO DIFF [HEME] AM Lab 12/16/18 05:11 Ordered CBC WITH AUTO DIFF [HEME] AM Lab 12/17/18 05:11 Ordered CBC WITH AUTO DIFF [HEME] AM Lab 12/18/18 05:11 Ordered COMPREHENSIVE METABOLIC PN,CMP [CHEM] AM Lab 12/15/18 05:11 Ordered COMPREHENSIVE METABOLIC PN,CMP [CHEM] AM Lab 12/16/18 05:11 Ordered COMPREHENSIVE METABOLIC PN,CMP [CHEM] AM Lab 12/17/18 05:11 Ordered COMPREHENSIVE METABOLIC PN,CMP [CHEM] AM Lab 12/18/18 05:11 Ordered CULTURE BLOOD [BC] Stat Lab 12/14/18 15:00 Received CULTURE BLOOD [BC] Stat Lab 12/14/18 15:08 Received CULTURE STOOL + SHIGATOX [RM] Stat Lab 12/14/18 18:55 Received MAGNESIUM [CHEM] AM Lab 12/15/18 05:11 Ordered MAGNESIUM [CHEM] AM Lab 12/16/18 05:11 Ordered MAGNESIUM [CHEM] AM Lab 12/17/18 05:11 Ordered MAGNESIUM [CHEM] AM Lab 12/18/18 05:11 Ordered OVA PARASITE EXAM Stat Lab 12/14/18 18:55 Received Acetaminophen [Tylenol] Med 12/14/18 19:40 Active 650 mg PO Q4H PRN Acetaminophen/HYDROcodone [[place] 325-5 MG] Med 12/14/18 19:40 Active 1 tab PO Q4H PRN Bismuth Subsalicylate [Pepto Bismol] Med 12/14/18 19:43 Ordered 30 ml PO Q2H PRN Levofloxacin/Dextrose 5%-Water [Levaquin in D5W 750 MG/ Med 12/15/18 17:00 Ordered 150 ML] 750 mg Premix Bag 1 bag IV Q24H NS + KCl 20mEq/L [Normal Saline with 20 mEq KCl] 1,000 Med 12/14/18 19:45 Active ml IV ASDIRECTED Ondansetron [Zofran] Med 12/14/18 19:40 Active 4 mg IV Q4H PRN Sodium Chloride 0.9% [Saline Flush] Med 12/14/18 14:12 Active 10 ml FLUSH ASDIRECTED PRN metroNIDAZOLE/Normal Saline [Flagyl 500 MG in NS 100 ML Med 12/14/18 18:30 Active ] 500 mg Premix Bag 1 bag IV Q8H Blood Culture x2 Reflex Set [OM.PC] Stat Oth 12/14/18 14:10 Ordered Peripheral IV Insertion Adult [OM.PC] Stat Oth 12/14/18 14:12 Ordered Resuscitation Status Routine Resus Stat 12/14/18 19:01 Ordered Medication Orders Acetaminophen (Tylenol) 650 mg PO Q4H PRN PRN Reason: Pain (Mild 1-3)/fever Hydrocodone Bitart/Acetaminophen ([place] 325-5 Mg) 1 tab PO Q4H PRN PRN Reason: Pain (moderate 4-6) Bismuth Subsalicylate (Pepto Bismol) 30 ml PO Q2H PRN PRN Reason: Diarrhea Metronidazole 500 mg/ Premix 100 mls @ 100 mls/hr IV Q8H COUNTS INCLUDE 234 BEDS AT THE [facility] Last Admin: 12/14/18 18:41 Dose: 100 mls/hr Potassium Chloride/Sodium Chloride (Normal Saline With 20 Meq Kcl) 1,000 mls @ 125 mls/hr IV ASDIRECTED DAVE Levofloxacin/Dextrose 750 mg/ (Premix) 150 mls @ 100 mls/hr IV Q24H DAVE Ondansetron HCl (Zofran) 4 mg IV Q4H PRN PRN Reason: Nausea/Vomiting Sodium Chloride (Saline Flush) 10 ml FLUSH ASDIRECTED PRN PRN Reason: Keep Vein Open Last Admin: 12/14/18 15:51 Dose: 10 ml Admin: 12/14/18 14:25 Dose: 10 ml Assessment/Plan Comment:: Assessment * 53-year-old male with six-week history of nonbloody diarrhea. Patient febrile on admission with history of night sweats. * WBC 19.76, CRP 21.1 * Temperature 102 * Dehydration with hypovolemia * Sinus tachycardia secondary to above * History of partial colon resection secondary to diverticulitis and mass. * Anal fissure Plan * Admit to med floor on telemetry * Levaquin 750 mg IV every 24 hours * Flagyl 500 mg IV every 8 hours * Bismuth as needed for diarrhea * Stool cultures, C. difficile, ova and parasite * Normal saline with 20 mEq KCl at 125 mL an hour * Full liquid diet * Patient will need a colonoscopy as an outpatient if etiology is not determined * CODE STATUS: full code * Length of stay 2-3 days - Mortality Measure Prognosis:: Good
[2018-12-14] MEDS: Vancomycin 125 MG Cap PO SCH (21:33)
[2018-12-15] MEDS: Acetaminophen 325 MG Tab PO PRN ×3 (00:27→23:08)
[2018-12-15] MEDS: NS + KCl 20mEq/L 1,000 ML IV SCH ×3 (03:17→19:37)
[2018-12-15] MEDS: metroNIDAZOLE/Normal Saline 500 MG in Premix Bag 1 BAG IV SCH ×4 (03:17→19:56)
[2018-12-15] MEDS ORDERED: Ibuprofen 600 MG Tab PO PRN (07:35)
[2018-12-15] MEDS ORDERED: Magnesium Sulfate/Water 4 GM in Premix Bag 1 BAG IV ONE (07:38)
[2018-12-15] MEDS: Potassium Chloride 10 MEQ in Premix Bag 1 BAG IV SCH ×4 (07:55→13:17)
[2018-12-15] MEDS: Vancomycin 125 MG Cap PO SCH ×5 (08:08→20:28)
[2018-12-15] MEDS: Bismuth Subsalicylate 262 MG/15 ML Susp 236 ML Bottle PO PRN ×2 (11:45→20:28)
--- NOTE | 2018-12-15 12:21 | PCM.PN ---
- General Info Date of Service: 12/15/18 Admission Dx/Problem (Free Text): Admission Diagnosis/Problem Admission Diagnosis/Problem Colitis Subjective Update: Patient states he continues to have liquid stools. C. difficile toxin was positive and he was started on vancomycin 125 mg 4 times a day. He has received 2 doses of metronidazole 500 mg IV. Functional Status: Reports: Pain Controlled - Review of Systems General: Reports: No Symptoms HEENT: Reports: No Symptoms Pulmonary: Reports: No Symptoms Cardiovascular: Reports: No Symptoms Gastrointestinal: Reports: Abdominal Pain, Diarrhea - Patient Data Vitals - Most Recent: Last Vital Signs Temp 100.0 F 12/15/18 11:49 Pulse 93 12/15/18 11:49 Resp 18 12/15/18 11:48 BP 96/69 12/15/18 11:48 Pulse Ox 98 12/15/18 11:49 Weight - Most Recent: 207 lb 14.405 oz I&O - Last 24 Hours: Intake & Output 12/14/18 12/15/18 12/15/18 22:59 06:59 14:59 Intake Total 3443 0 Output Total 900 Balance 2543 0 Lab Results Last 24 Hours: Laboratory Results - last 24 hr 12/14/18 12/14/18 12/14/18 Range/Units 14:10 14:10 14:10 WBC 19.76 H (4.23-9.07) K/mm3 RBC 5.00 (4.63-6.08) M/mm3 Hgb 14.0 (13.7-17.5) gm/dl Hct 42.3 (40.1-51.0) % MCV 84.6 D (79.0-92.2) fl MCH 28.0 (25.7-32.2) pg MCHC 33.1 (32.2-35.5) g/dl RDW Std Deviation 39.8 (35.1-43.9) fL Plt Count 595 H D (163-337) K/mm3 MPV 8.7 L (9.4-12.3) fl Neut % (Auto) (34.0-67.9) % Lymph % (Auto) (21.8-53.1) % [place] % (Auto) (5.3-12.2) % Eos % (Auto) (0.8-7.0) Baso % (Auto) (0.1-1.2) % Neut # (Auto) (1.78-5.38) K/mm3 Lymph # (Auto) (1.32-3.57) K/mm3 [place] # (Auto) (0.30-0.82) K/mm3 Eos # (Auto) (0.04-0.54) K/mm3 Baso # (Auto) (0.01-0.08) K/mm3 Neutrophils % (Manual) 69 H (40-60) % Band Neutrophils % 0 (0-10) % Lymphocytes % (Manual) 20 (20-40) % Atypical Lymphs % 0 % Monocytes % (Manual) 11 H (2-10) % Eosinophils % (Manual) 0 L (0.8-7.0) % Basophils % (Manual) 0 L (0.2-1.2) Manual Slide Review Platelet Estimate Increased Plt Morphology Comment Normal RBC Morph Comment Normal PT 12.1 H (9.7-12.0) SECONDS INR 1.12 APTT 26 (22-31) SECONDS Sodium 135 L (136-145) mEq/L Potassium 3.6 (3.5-5.1) mEq/L Chloride 95 L (98-107) mEq/L Carbon Dioxide 24 (21-32) mEq/L Anion Gap 19.6 H (5-15) BUN 15 (7-18) mg/dL Creatinine 1.2 (0.7-1.3) mg/dL Est Cr Clr Drug Dosing 70.37 mL/min Estimated GFR (MDRD) > 60 (>60) mL/min BUN/Creatinine Ratio 12.5 L (14-18) Glucose 150 H (74-106) mg/dL Lactic Acid (0.4-2.0) mmol/L Calcium 9.6 (8.5-10.1) mg/dL Magnesium 2.2 (1.8-2.4) mg/dl Total Bilirubin 0.5 (0.2-1.0) mg/dL AST 19 (15-37) U/L ALT 35 (16-63) U/L Alkaline Phosphatase 99 (46-116) U/L Troponin I < 0.017 (0.00-0.056) ng/mL C-Reactive Protein (<1.0) mg/dL NT-Pro-B Natriuret Pep (0-125) pg/mL Total Protein 7.5 (6.4-8.2) g/dl Albumin 2.6 L (3.4-5.0) g/dl Globulin 4.9 gm/dL Albumin/Globulin Ratio 0.5 L (1-2) Urine Color (Yellow) Urine Appearance (Clear) Urine pH (5.0-8.0) Ur Specific [place] (1.005-1.030) Urine Protein (Negative) Urine Glucose (UA) (Negative) Urine Ketones (Negative) Urine Occult Blood (Negative) Urine Nitrite (Negative) Urine Bilirubin (Negative) Urine Urobilinogen (0.2-1.0) Ur Leukocyte Esterase (Negative) Urine RBC (0-5) /hpf Urine WBC (0-5) /hpf Ur Squamous Epith Cells (0-5) /hpf Urine Bacteria (FEW) /hpf Urine Mucus (FEW) /hpf C.difficile 027-NAP1-B1 C. difficile Tox (PCR) 12/14/18 12/14/18 12/14/18 Range/Units 14:10 14:10 15:00 WBC (4.23-9.07) K/mm3 RBC (4.63-6.08) M/mm3 Hgb (13.7-17.5) gm/dl Hct (40.1-51.0) % MCV (79.0-92.2) fl MCH (25.7-32.2) pg MCHC (32.2-35.5) g/dl RDW Std Deviation (35.1-43.9) fL Plt Count (163-337) K/mm3 MPV (9.4-12.3) fl Neut % (Auto) (34.0-67.9) % Lymph % (Auto) (21.8-53.1) % [place] % (Auto) (5.3-12.2) % Eos % (Auto) (0.8-7.0) Baso % (Auto) (0.1-1.2) % Neut # (Auto) (1.78-5.38) K/mm3 Lymph # (Auto) (1.32-3.57) K/mm3 [place] # (Auto) (0.30-0.82) K/mm3 Eos # (Auto) (0.04-0.54) K/mm3 Baso # (Auto) (0.01-0.08) K/mm3 Neutrophils % (Manual) (40-60) % Band Neutrophils % (0-10) % Lymphocytes % (Manual) (20-40) % Atypical Lymphs % % Monocytes % (Manual) (2-10) % Eosinophils % (Manual) (0.8-7.0) % Basophils % (Manual) (0.2-1.2) Manual Slide Review Platelet Estimate Plt Morphology Comment RBC Morph Comment PT (9.7-12.0) SECONDS INR APTT (22-31) SECONDS Sodium (136-145) mEq/L Potassium (3.5-5.1) mEq/L Chloride (98-107) mEq/L Carbon Dioxide (21-32) mEq/L Anion Gap (5-15) BUN (7-18) mg/dL Creatinine (0.7-1.3) mg/dL Est Cr Clr Drug Dosing mL/min Estimated GFR (MDRD) (>60) mL/min BUN/Creatinine Ratio (14-18) Glucose (74-106) mg/dL Lactic Acid 2.8 H (0.4-2.0) mmol/L Calcium (8.5-10.1) mg/dL Magnesium (1.8-2.4) mg/dl Total Bilirubin (0.2-1.0) mg/dL AST (15-37) U/L ALT (16-63) U/L Alkaline Phosphatase (46-116) U/L Troponin I (0.00-0.056) ng/mL C-Reactive Protein 21.1 H* (<1.0) mg/dL NT-Pro-B Natriuret Pep 101 (0-125) pg/mL Total Protein (6.4-8.2) g/dl Albumin (3.4-5.0) g/dl Globulin gm/dL Albumin/Globulin Ratio (1-2) Urine Color (Yellow) Urine Appearance (Clear) Urine pH (5.0-8.0) Ur Specific [place] (1.005-1.030) Urine Protein (Negative) Urine Glucose (UA) (Negative) Urine Ketones (Negative) Urine Occult Blood (Negative) Urine Nitrite (Negative) Urine Bilirubin (Negative) Urine Urobilinogen (0.2-1.0) Ur Leukocyte Esterase (Negative) Urine RBC (0-5) /hpf Urine WBC (0-5) /hpf Ur Squamous Epith Cells (0-5) /hpf Urine Bacteria (FEW) /hpf Urine Mucus (FEW) /hpf C.difficile 027-NAP1-B1 C. difficile Tox (PCR) 12/14/18 12/14/18 12/14/18 Range/Units 17:10 18:55 19:08 WBC (4.23-9.07) K/mm3 RBC (4.63-6.08) M/mm3 Hgb (13.7-17.5) gm/dl Hct (40.1-51.0) % MCV (79.0-92.2) fl MCH (25.7-32.2) pg MCHC (32.2-35.5) g/dl RDW Std Deviation (35.1-43.9) fL Plt Count (163-337) K/mm3 MPV (9.4-12.3) fl Neut % (Auto) (34.0-67.9) % Lymph % (Auto) (21.8-53.1) % [place] % (Auto) (5.3-12.2) % Eos % (Auto) (0.8-7.0) Baso % (Auto) (0.1-1.2) % Neut # (Auto) (1.78-5.38) K/mm3 Lymph # (Auto) (1.32-3.57) K/mm3 [place] # (Auto) (0.30-0.82) K/mm3 Eos # (Auto) (0.04-0.54) K/mm3 Baso # (Auto) (0.01-0.08) K/mm3 Neutrophils % (Manual) (40-60) % Band Neutrophils % (0-10) % Lymphocytes % (Manual) (20-40) % Atypical Lymphs % % Monocytes % (Manual) (2-10) % Eosinophils % (Manual) (0.8-7.0) % Basophils % (Manual) (0.2-1.2) Manual Slide Review Platelet Estimate Plt Morphology Comment RBC Morph Comment PT (9.7-12.0) SECONDS INR APTT (22-31) SECONDS Sodium (136-145) mEq/L Potassium (3.5-5.1) mEq/L Chloride (98-107) mEq/L Carbon Dioxide (21-32) mEq/L Anion Gap (5-15) BUN (7-18) mg/dL Creatinine (0.7-1.3) mg/dL Est Cr Clr Drug Dosing mL/min Estimated GFR (MDRD) (>60) mL/min BUN/Creatinine Ratio (14-18) Glucose (74-106) mg/dL Lactic Acid 1.1 (0.4-2.0) mmol/L Calcium (8.5-10.1) mg/dL Magnesium (1.8-2.4) mg/dl Total Bilirubin (0.2-1.0) mg/dL AST (15-37) U/L ALT (16-63) U/L Alkaline Phosphatase (46-116) U/L Troponin I (0.00-0.056) ng/mL C-Reactive Protein (<1.0) mg/dL NT-Pro-B Natriuret Pep (0-125) pg/mL Total Protein (6.4-8.2) g/dl Albumin (3.4-5.0) g/dl Globulin gm/dL Albumin/Globulin Ratio (1-2) Urine Color Yellow (Yellow) Urine Appearance Clear (Clear) Urine pH 6.0 (5.0-8.0) Ur Specific [place] 1.010 (1.005-1.030) Urine Protein Negative (Negative) Urine Glucose (UA) Negative (Negative) Urine Ketones Negative (Negative) Urine Occult Blood Negative (Negative) Urine Nitrite Negative (Negative) Urine Bilirubin Negative (Negative) Urine Urobilinogen 0.2 (0.2-1.0) Ur Leukocyte Esterase Negative (Negative) Urine RBC Not seen (0-5) /hpf Urine WBC Not seen (0-5) /hpf Ur Squamous Epith Cells 0-5 (0-5) /hpf Urine Bacteria Not seen (FEW) /hpf Urine Mucus Not seen (FEW) /hpf C.difficile 027-NAP1-B1 Presumptive negative C. difficile Tox (PCR) Positive H 12/15/18 12/15/18 Range/Units 05:25 05:25 WBC 12.25 H (4.23-9.07) K/mm3 RBC 3.60 L (4.63-6.08) M/mm3 Hgb 10.1 L D (13.7-17.5) gm/dl Hct 30.6 L (40.1-51.0) % MCV 85.0 (79.0-92.2) fl MCH 28.1 (25.7-32.2) pg MCHC 33.0 (32.2-35.5) g/dl RDW Std Deviation 38.8 (35.1-43.9) fL Plt Count 374 H D (163-337) K/mm3 MPV 8.8 L (9.4-12.3) fl Neut % (Auto) 61.3 (34.0-67.9) % Lymph % (Auto) 12.9 L (21.8-53.1) % [place] % (Auto) 25.1 H (5.3-12.2) % Eos % (Auto) 0.1 L (0.8-7.0) Baso % (Auto) 0.1 (0.1-1.2) % Neut # (Auto) 7.51 H (1.78-5.38) K/mm3 Lymph # (Auto) 1.58 (1.32-3.57) K/mm3 [place] # (Auto) 3.08 H (0.30-0.82) K/mm3 Eos # (Auto) 0.01 L (0.04-0.54) K/mm3 Baso # (Auto) 0.01 (0.01-0.08) K/mm3 Neutrophils % (Manual) (40-60) % Band Neutrophils % (0-10) % Lymphocytes % (Manual) (20-40) % Atypical Lymphs % % Monocytes % (Manual) (2-10) % Eosinophils % (Manual) (0.8-7.0) % Basophils % (Manual) (0.2-1.2) Manual Slide Review Abnormal smear Platelet Estimate Plt Morphology Comment RBC Morph Comment PT (9.7-12.0) SECONDS INR APTT (22-31) SECONDS Sodium 133 L (136-145) mEq/L Potassium 3.3 L (3.5-5.1) mEq/L Chloride 101 (98-107) mEq/L Carbon Dioxide 22 (21-32) mEq/L Anion Gap 13.3 (5-15) BUN 6 L (7-18) mg/dL Creatinine 0.7 (0.7-1.3) mg/dL Est Cr Clr Drug Dosing 120.64 mL/min Estimated GFR (MDRD) > 60 (>60) mL/min BUN/Creatinine Ratio 8.6 L (14-18) Glucose 125 H (74-106) mg/dL Lactic Acid (0.4-2.0) mmol/L Calcium 7.9 L D (8.5-10.1) mg/dL Magnesium 1.5 L (1.8-2.4) mg/dl Total Bilirubin 0.5 (0.2-1.0) mg/dL AST 13 L (15-37) U/L ALT 21 (16-63) U/L Alkaline Phosphatase 55 (46-116) U/L Troponin I (0.00-0.056) ng/mL C-Reactive Protein (<1.0) mg/dL NT-Pro-B Natriuret Pep (0-125) pg/mL Total Protein 5.0 L (6.4-8.2) g/dl Albumin (3.4-5.0) g/dl Globulin 3.3 gm/dL Albumin/Globulin Ratio 0.5 L (1-2) Urine Color (Yellow) Urine Appearance (Clear) Urine pH (5.0-8.0) Ur Specific [place] (1.005-1.030) Urine Protein (Negative) Urine Glucose (UA) (Negative) Urine Ketones (Negative) Urine Occult Blood (Negative) Urine Nitrite (Negative) Urine Bilirubin (Negative) Urine Urobilinogen (0.2-1.0) Ur Leukocyte Esterase (Negative) Urine RBC (0-5) /hpf Urine WBC (0-5) /hpf Ur Squamous Epith Cells (0-5) /hpf Urine Bacteria (FEW) /hpf Urine Mucus (FEW) /hpf C.difficile 027-NAP1-B1 C. difficile Tox (PCR) Efren Results Last 24 Hours: Microbiology 12/14/18 18:55 Stool for WBCs - Final Stool / Feces Med Orders - Current: Current Medications Acetaminophen (Tylenol) 650 mg PO Q4H PRN PRN Reason: Pain (Mild 1-3)/fever Last Admin: 12/15/18 00:27 Dose: 650 mg Hydrocodone Bitart/Acetaminophen ([place] 325-5 Mg) 1 tab PO Q4H PRN PRN Reason: Pain (moderate 4-6) Bismuth Subsalicylate (Pepto Bismol) 30 ml PO Q2H PRN PRN Reason: Diarrhea Last Admin: 12/15/18 11:45 Dose: 30 ml Metronidazole 500 mg/ Premix 100 mls @ 100 mls/hr IV Q8H [facility] Last Admin: 12/15/18 09:44 Dose: 100 mls/hr Potassium Chloride/Sodium Chloride (Normal Saline With 20 Meq Kcl) 1,000 mls @ 125 mls/hr IV ASDIRECTED [facility] Last Admin: 12/15/18 11:44 Dose: 125 mls/hr Ibuprofen (Motrin) 600 mg PO Q6H PRN PRN Reason: Pain/Fever Ondansetron HCl (Zofran) 4 mg IV Q4H PRN PRN Reason: Nausea/Vomiting Sodium Chloride (Saline Flush) 10 ml FLUSH ASDIRECTED PRN PRN Reason: Keep Vein Open Last Admin: 12/14/18 15:51 Dose: 10 ml Vancomycin HCl (Vancomycin) 125 mg PO QID [facility] Last Admin: 12/15/18 11:51 Dose: 125 mg Discontinued Medications Diatrizoate Meglum/Diatrizoate Sod (Gastrografin 37%) 90 ml PO ONETIME ONE Stop: 12/14/18 14:44 Last Admin: 12/14/18 15:51 Dose: 90 ml Sodium Chloride (Normal Saline) 1,000 mls @ 999 mls/hr IV ONETIME ONE Stop: 12/14/18 15:12 Last Admin: 12/14/18 14:25 Dose: 999 mls/hr Sodium Chloride (Normal Saline) 1,000 mls @ 999 mls/hr IV ONETIME ONE Stop: 12/14/18 16:24 Last Admin: 12/14/18 15:38 Dose: 999 mls/hr Sodium Chloride (Normal Saline) 1,000 mls @ 999 mls/hr IV ONETIME ONE Stop: 12/14/18 17:50 Last Admin: 12/14/18 17:15 Dose: 999 mls/hr Levofloxacin/Dextrose 500 mg/ (Premix) 100 mls @ 100 mls/hr IV ONETIME ONE Stop: 12/14/18 18:33 Last Admin: 12/14/18 18:41 Dose: 100 mls/hr Sodium Chloride (Normal Saline) 1,000 mls @ 125 mls/hr IV ASDIRECTED [facility] Levofloxacin/Dextrose 750 mg/ (Premix) 150 mls @ 100 mls/hr IV Q24H [facility] Magnesium Sulfate 4 gm/ Premix 50 mls @ 12.5 mls/hr IV ONETIME ONE Stop: 12/15/18 11:37 Last Admin: 12/15/18 07:56 Dose: 12.5 mls/hr Potassium Chloride 10 meq/ (Premix) 100 mls @ 100 mls/hr IV Q1H [facility] Stop: 12/15/18 11:44 Last Admin: 12/15/18 12:14 Dose: 100 mls/hr Iopamidol (Isovue-300 (61%)) 100 ml IVPUSH ONETIME ONE Stop: 12/14/18 14:44 Last Admin: 12/14/18 15:51 Dose: 100 ml - Exam Quality Assessment: No: Supplemental Oxygen General: Alert, Oriented HEENT: Pupils Equal, Pupils Reactive, EOMI, Mucous Membr. Moist/[place] Neck: Supple Lungs: Clear to Auscultation, Normal Respiratory Effort Cardiovascular: Regular Rate, Regular Rhythm GI/Abdominal Exam: Normal Bowel Sounds, Tender (Diffuse tenderness without guarding or rebound) Extremities: Normal Inspection, Normal Range of Motion, Non-Tender, No Pedal Edema, Normal Capillary Refill Psy/Mental Status: Alert, Normal Affect, Normal Mood - Problem List Review Problem List Initiated/Reviewed/Updated: Yes - My Orders Last 24 Hours: My Active Orders 12/14/18 18:30 metroNIDAZOLE/Normal Saline [Flagyl 500 MG in NS 100 ML] 500 mg Premix Bag 1 bag IV Q8H 12/14/18 19:01 Resuscitation Status Routine 12/14/18 19:40 Up ad Hedy [RC] ASDIRECTED Acetaminophen [Tylenol] 650 mg PO Q4H PRN Acetaminophen/HYDROcodone [[place] 325-5 MG] 1 tab PO Q4H PRN Ondansetron [Zofran] 4 mg IV Q4H PRN 12/14/18 19:41 Ambulate [RC] PER UNIT ROUTINE Oxygen Therapy [RC] PRN VTE/DVT Education [RC] BID Vital Signs [RC] Q4HR 12/14/18 19:43 Bismuth Subsalicylate [Pepto Bismol] 30 ml PO Q2H PRN 12/14/18 19:45 NS + KCl 20mEq/L [Normal Saline with 20 mEq KCl] 1,000 ml IV ASDIRECTED 12/14/18 19:52 RT Incentive Spirometry [RC] ASDIRECTED 12/14/18 21:00 Vancomycin 125 mg PO QID 12/15/18 05:25 COMPREHENSIVE METABOLIC PN,CMP [CHEM] AM MAGNESIUM [CHEM] AM 12/15/18 07:35 Ibuprofen [Motrin] 600 mg PO Q6H PRN 12/15/18 08:02 Isolation [COMM] Routine 12/15/18 Breakfast Regular Diet [DIET] 12/16/18 05:11 CBC WITH AUTO DIFF [HEME] AM COMPREHENSIVE METABOLIC PN,CMP [CHEM] AM MAGNESIUM [CHEM] AM 12/16/18 05:15 CRP [C-REACTIVE PROTEIN] [CHEM] DAILY 12/17/18 05:11 CBC WITH AUTO DIFF [HEME] AM COMPREHENSIVE METABOLIC PN,CMP [CHEM] AM MAGNESIUM [CHEM] AM 12/17/18 05:15 CRP [C-REACTIVE PROTEIN] [CHEM] DAILY 12/18/18 05:11 CBC WITH AUTO DIFF [HEME] AM COMPREHENSIVE METABOLIC PN,CMP [CHEM] AM MAGNESIUM [CHEM] AM 12/18/18 05:15 CRP [C-REACTIVE PROTEIN] [CHEM] DAILY - Plan Plan:: Assessment * 53-year-old male with six-week history of nonbloody diarrhea. Patient febrile on admission with history of night sweats. * WBC 19.76-->12.25, CRP 21.1 * Temperature 102 * C. 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 * Anal fissure * Hypomagnesemia/hypokalemia Plan * Admit to med floor on telemetry * Stop Levaquin * Vancomycin 125 mg 4 times a day for up to 14 days * Flagyl 500 mg IV every 8 hours - stop today * Bismuth as needed for diarrhea * replete magnesium and potassium * Stool cultures, ova and parasite * Normal saline with 20 mEq KCl at 125 mL an hour- titrate based on oral intake * Full liquid diet - advance to regular diet * Spoke with Deangelo Mendozack surgeon regional account manager who agreed with plan and stated he would take him if he worsens. * CODE STATUS: full code * Length of stay 2-3 days
[2018-12-15] MEDS ORDERED: Levofloxacin/Dextrose 5%-Water 750 MG in Premix Bag 1 BAG IV SCH (17:00)
[2018-12-16] MEDS: metroNIDAZOLE/Normal Saline 500 MG in Premix Bag 1 BAG IV SCH (02:18)
[2018-12-16] MEDS: NS + KCl 20mEq/L 1,000 ML IV SCH ×4 (02:19→21:28)
[2018-12-16] MEDS: Vancomycin 125 MG Cap PO SCH ×4 (10:24→20:21)
--- NOTE | 2018-12-16 14:56 | PCM.PN ---
- General Info Date of Service: 12/16/18 Admission Dx/Problem (Free Text): Admission Diagnosis/Problem Admission Diagnosis/Problem Colitis Subjective Update: Patient had fever over 102 last night. He is generally feeling better with decreased amount of stooling. Functional Status: Reports: Pain Controlled - Review of Systems General: Reports: No Symptoms HEENT: Reports: No Symptoms Pulmonary: Reports: No Symptoms Cardiovascular: Reports: No Symptoms Gastrointestinal: Reports: Abdominal Pain, Diarrhea - Patient Data Vitals - Most Recent: Last Vital Signs Temp 98.8 F 12/16/18 02:21 Pulse 86 12/16/18 02:21 Resp 16 12/16/18 02:21 BP 111/72 12/16/18 02:21 Pulse Ox 98 12/16/18 02:21 Weight - Most Recent: 203 lb 14.4 oz I&O - Last 24 Hours: Intake & Output 12/15/18 12/16/18 12/16/18 22:59 06:59 14:59 Intake Total 4130 2450 240 Output Total 1750 Balance 4130 700 240 Lab Results Last 24 Hours: Laboratory Results - last 24 hr 12/15/18 12/16/18 12/16/18 Range/Units 05:25 05:52 05:52 WBC 9.11 H (4.23-9.07) K/mm3 RBC 3.67 L (4.63-6.08) M/mm3 Hgb 10.6 L (13.7-17.5) gm/dl Hct 31.1 L (40.1-51.0) % MCV 84.7 (79.0-92.2) fl MCH 28.9 (25.7-32.2) pg MCHC 34.1 (32.2-35.5) g/dl RDW Std Deviation 38.9 (35.1-43.9) fL Plt Count 386 H (163-337) K/mm3 MPV 8.8 L (9.4-12.3) fl Neut % (Auto) 55.4 (34.0-67.9) % Lymph % (Auto) 23.2 (21.8-53.1) % [place] % (Auto) 20.6 H (5.3-12.2) % Eos % (Auto) 0.7 L (0.8-7.0) Baso % (Auto) 0.1 (0.1-1.2) % Neut # (Auto) 5.05 (1.78-5.38) K/mm3 Lymph # (Auto) 2.11 (1.32-3.57) K/mm3 [place] # (Auto) 1.88 H (0.30-0.82) K/mm3 Eos # (Auto) 0.06 (0.04-0.54) K/mm3 Baso # (Auto) 0.01 (0.01-0.08) K/mm3 Manual Slide Review Abnormal smear Sodium 134 L (136-145) mEq/L Potassium 3.8 (3.5-5.1) mEq/L Chloride 102 (98-107) mEq/L Carbon Dioxide 22 (21-32) mEq/L Anion Gap 13.8 (5-15) BUN 7 (7-18) mg/dL Creatinine 0.7 (0.7-1.3) mg/dL Est Cr Clr Drug Dosing 120.23 mL/min Estimated GFR (MDRD) > 60 (>60) mL/min BUN/Creatinine Ratio 10.0 L (14-18) Glucose 111 H (74-106) mg/dL Calcium 7.9 L (8.5-10.1) mg/dL Magnesium 1.9 (1.8-2.4) mg/dl Total Bilirubin 0.3 (0.2-1.0) mg/dL AST 14 L (15-37) U/L ALT 19 (16-63) U/L Alkaline Phosphatase 60 (46-116) U/L C-Reactive Protein 19.7 H* (<1.0) mg/dL Total Protein 5.2 L (6.4-8.2) g/dl Albumin 1.7 L 1.7 L (3.4-5.0) g/dl Globulin 3.5 gm/dL Albumin/Globulin Ratio 0.5 L (1-2) Efren Results Last 24 Hours: Microbiology 12/14/18 18:55 Stool Culture - Preliminary Stool / Feces Shiga Toxin I - Final NEGATIVE FOR SHIGA TOXIN 1 REFERENCE RANGE: NEGATIVE Shiga Toxin II - Final NEGATIVE FOR SHIGA TOXIN 2 REFERENCE RANGE: NEGATIVE 12/14/18 18:55 Cryptosporidium/Giardia - Final Stool / Feces 12/14/18 15:08 Aerobic Blood Culture - Preliminary Blood - Venous - Lab Draw NO GROWTH AFTER 1 DAY Anaerobic Blood Culture - Preliminary NO GROWTH AFTER 1 DAY 12/14/18 15:00 Aerobic Blood Culture - Preliminary Blood - Venous NO GROWTH AFTER 1 DAY Anaerobic Blood Culture - Preliminary NO GROWTH AFTER 1 DAY Med Orders - Current: Current Medications Acetaminophen (Tylenol) 650 mg PO Q4H PRN PRN Reason: Pain (Mild 1-3)/fever Last Admin: 12/15/18 23:08 Dose: 650 mg Hydrocodone Bitart/Acetaminophen ([place] 325-5 Mg) 1 tab PO Q4H PRN PRN Reason: Pain (moderate 4-6) Bismuth Subsalicylate (Pepto Bismol) 30 ml PO Q2H PRN PRN Reason: Diarrhea Last Admin: 12/15/18 20:28 Dose: 30 ml Potassium Chloride/Sodium Chloride (Normal Saline With 20 Meq Kcl) 1,000 mls @ 125 mls/hr IV ASDIRECTED [facility] Last Admin: 12/16/18 10:24 Dose: 125 mls/hr Ibuprofen (Motrin) 600 mg PO Q6H PRN PRN Reason: Pain/Fever Ondansetron HCl (Zofran) 4 mg IV Q4H PRN PRN Reason: Nausea/Vomiting Sodium Chloride (Saline Flush) 10 ml FLUSH ASDIRECTED PRN PRN Reason: Keep Vein Open Last Admin: 12/14/18 15:51 Dose: 10 ml Vancomycin HCl (Vancomycin) 125 mg PO QID [facility] Last Admin: 12/16/18 12:25 Dose: 125 mg Discontinued Medications Diatrizoate Meglum/Diatrizoate Sod (Gastrografin 37%) 90 ml PO ONETIME ONE Stop: 12/14/18 14:44 Last Admin: 12/14/18 15:51 Dose: 90 ml Sodium Chloride (Normal Saline) 1,000 mls @ 999 mls/hr IV ONETIME ONE Stop: 12/14/18 15:12 Last Admin: 12/14/18 14:25 Dose: 999 mls/hr Sodium Chloride (Normal Saline) 1,000 mls @ 999 mls/hr IV ONETIME ONE Stop: 12/14/18 16:24 Last Admin: 12/14/18 15:38 Dose: 999 mls/hr Sodium Chloride (Normal Saline) 1,000 mls @ 999 mls/hr IV ONETIME ONE Stop: 12/14/18 17:50 Last Admin: 12/14/18 17:15 Dose: 999 mls/hr Levofloxacin/Dextrose 500 mg/ (Premix) 100 mls @ 100 mls/hr IV ONETIME ONE Stop: 12/14/18 18:33 Last Admin: 12/14/18 18:41 Dose: 100 mls/hr Metronidazole 500 mg/ Premix 100 mls @ 100 mls/hr IV Q8H DAVE Last Admin: 12/16/18 02:18 Dose: 100 mls/hr Sodium Chloride (Normal Saline) 1,000 mls @ 125 mls/hr IV ASDIRECTED DAVE Levofloxacin/Dextrose 750 mg/ (Premix) 150 mls @ 100 mls/hr IV Q24H DAVE Magnesium Sulfate 4 gm/ Premix 50 mls @ 12.5 mls/hr IV ONETIME ONE Stop: 12/15/18 11:37 Last Admin: 12/15/18 07:56 Dose: 12.5 mls/hr Potassium Chloride 10 meq/ (Premix) 100 mls @ 100 mls/hr IV Q1H DAVE Stop: 12/15/18 11:44 Last Admin: 12/15/18 13:17 Dose: 100 mls/hr Iopamidol (Isovue-300 (61%)) 100 ml IVPUSH ONETIME ONE Stop: 12/14/18 14:44 Last Admin: 12/14/18 15:51 Dose: 100 ml - Exam General: Alert, Oriented HEENT: Pupils Equal, Mucous Membr. Moist/[place] Neck: Supple Lungs: Clear to Auscultation, Normal Respiratory Effort Cardiovascular: Regular Rate, Regular Rhythm GI/Abdominal Exam: Normal Bowel Sounds, No Distention, Tender (Mild diffuse tenderness) Extremities: Normal Inspection, No Pedal Edema Skin: Warm, Dry, Intact Psy/Mental Status: Alert, Normal Affect, Normal Mood - Problem List Review Problem List Initiated/Reviewed/Updated: Yes - My Orders Last 24 Hours: My Active Orders 12/17/18 05:11 CBC WITH AUTO DIFF [HEME] AM COMPREHENSIVE METABOLIC PN,CMP [CHEM] AM MAGNESIUM [CHEM] AM 12/17/18 05:15 CRP [C-REACTIVE PROTEIN] [CHEM] DAILY 12/18/18 05:11 CBC WITH AUTO DIFF [HEME] AM COMPREHENSIVE METABOLIC PN,CMP [CHEM] AM MAGNESIUM [CHEM] AM 12/18/18 05:15 CRP [C-REACTIVE PROTEIN] [CHEM] DAILY - Plan Plan:: Assessment * 53-year-old male with six-week history of nonbloody diarrhea. Patient febrile on admission with history of night sweats. * WBC 19.76-->12.25-->9.1, CRP 21.1-->19.7 * Temperature 102 * C. 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 * Anal fissure * Hypomagnesemia/hypokalemia - resolved Plan * Admit to med floor on telemetry * Stop metronidazole * Vancomycin 125 mg 4 times a day for up to 14 days * Bismuth as needed for diarrhea * Stool cultures, ova and parasite * Normal saline with 20 mEq KCl at 125 mL an hour- titrate based on oral intake * Full liquid diet - advance to regular diet * Spoke with Deangelo Roy surgeon business education teacher who agreed with plan and stated he would take him if he worsens. * CODE STATUS: full code * Length of stay 2-3 days
[2018-12-16] MEDS: Bismuth Subsalicylate 262 MG/15 ML Susp 236 ML Bottle PO PRN (20:21)
[2018-12-16] MEDS: Acetaminophen 325 MG Tab PO PRN (21:30)
[2018-12-17] MEDS: Vancomycin 125 MG Cap PO SCH ×4 (09:31→21:20)
--- NOTE | 2018-12-17 12:46 | PCM.PN ---
- General Info Date of Service: 12/17/18 Subjective Update: Patient examined by me at bedside with in the room As per nursing staff patient had an okay nigh approximately 4-5 bowel movements. He is tolerating diet, ambulating to and from restaurant. As per patient he slept okay, bowel movement frequency has decreased, Significant anal pain with each bowel movement, feels less weak. - Patient Data Vitals - Most Recent: Last Vital Signs Temp 36.7 C 12/17/18 12:03 Pulse 80 12/17/18 12:03 Resp 18 12/17/18 11:22 BP 109/72 12/17/18 12:03 Pulse Ox 99 12/17/18 12:03 Weight - Most Recent: 91.444 kg I&O - Last 24 Hours: Intake & Output 12/16/18 12/17/18 12/17/18 22:59 06:59 14:59 Intake Total 3857 1450 480 Output Total 1300 900 Balance 2557 550 480 Lab Results Last 24 Hours: Laboratory Results - last 24 hr 12/17/18 12/17/18 Range/Units 05:54 05:54 WBC 6.99 (4.23-9.07) K/mm3 RBC 3.82 L (4.63-6.08) M/mm3 Hgb 11.1 L (13.7-17.5) gm/dl Hct 32.4 L (40.1-51.0) % MCV 84.8 (79.0-92.2) fl MCH 29.1 (25.7-32.2) pg MCHC 34.3 (32.2-35.5) g/dl RDW Std Deviation 39.9 (35.1-43.9) fL Plt Count 418 H (163-337) K/mm3 MPV 8.7 L (9.4-12.3) fl Neut % (Auto) 52.6 (34.0-67.9) % Lymph % (Auto) 28.3 (21.8-53.1) % [place] % (Auto) 17.2 H (5.3-12.2) % Eos % (Auto) 1.6 (0.8-7.0) Baso % (Auto) 0.3 (0.1-1.2) % Neut # (Auto) 3.68 (1.78-5.38) K/mm3 Lymph # (Auto) 1.98 (1.32-3.57) K/mm3 [place] # (Auto) 1.20 H (0.30-0.82) K/mm3 Eos # (Auto) 0.11 (0.04-0.54) K/mm3 Baso # (Auto) 0.02 (0.01-0.08) K/mm3 Manual Slide Review Abnormal smear Sodium 134 L (136-145) mEq/L Potassium 4.2 (3.5-5.1) mEq/L Chloride 102 (98-107) mEq/L Carbon Dioxide 25 (21-32) mEq/L Anion Gap 11.2 (5-15) BUN 6 L (7-18) mg/dL Creatinine 0.6 L (0.7-1.3) mg/dL Est Cr Clr Drug Dosing 140.27 mL/min Estimated GFR (MDRD) > 60 (>60) mL/min BUN/Creatinine Ratio 10.0 L (14-18) Glucose 91 (74-106) mg/dL Calcium 8.5 (8.5-10.1) mg/dL Magnesium 1.8 (1.8-2.4) mg/dl Total Bilirubin 0.3 (0.2-1.0) mg/dL AST 14 L (15-37) U/L ALT 20 (16-63) U/L Alkaline Phosphatase 55 (46-116) U/L C-Reactive Protein 12.3 H* (<1.0) mg/dL Total Protein 5.2 L (6.4-8.2) g/dl Albumin 1.7 L (3.4-5.0) g/dl Globulin 3.5 gm/dL Albumin/Globulin Ratio 0.5 L (1-2) Efren Results Last 24 Hours: Microbiology 12/14/18 18:55 Stool Culture - Final Stool / Feces NORMAL ENTERIC LEEANN. NO SALMONELLA, SHIGELLA, CAMPYLOBACTER, E.COLI O157 OR YERSINIA ISOLATED. Shiga Toxin I - Final NEGATIVE FOR SHIGA TOXIN 1 REFERENCE RANGE: NEGATIVE Shiga Toxin II - Final NEGATIVE FOR SHIGA TOXIN 2 REFERENCE RANGE: NEGATIVE 12/14/18 15:08 Aerobic Blood Culture - Preliminary Blood - Venous - Lab Draw NO GROWTH AFTER 2 DAYS Anaerobic Blood Culture - Preliminary NO GROWTH AFTER 2 DAYS 12/14/18 15:00 Aerobic Blood Culture - Preliminary Blood - Venous NO GROWTH AFTER 2 DAYS Anaerobic Blood Culture - Preliminary NO GROWTH AFTER 2 DAYS 12/14/18 18:55 Cryptosporidium/Giardia - Final Stool / Feces Med Orders - Current: Current Medications Acetaminophen (Tylenol) 650 mg PO Q4H PRN PRN Reason: Pain (Mild 1-3)/fever Last Admin: 12/16/18 21:30 Dose: 650 mg Hydrocodone Bitart/Acetaminophen ([place] 325-5 Mg) 1 tab PO Q4H PRN PRN Reason: Pain (moderate 4-6) Bismuth Subsalicylate (Pepto Bismol) 30 ml PO Q2H PRN PRN Reason: Diarrhea Last Admin: 12/16/18 20:21 Dose: 30 ml Ibuprofen (Motrin) 600 mg PO Q6H PRN PRN Reason: Pain/Fever Ondansetron HCl (Zofran) 4 mg IV Q4H PRN PRN Reason: Nausea/Vomiting Sodium Chloride (Saline Flush) 10 ml FLUSH ASDIRECTED PRN PRN Reason: Keep Vein Open Last Admin: 12/14/18 15:51 Dose: 10 ml Vancomycin HCl (Vancomycin) 125 mg PO QID DAVE Last Admin: 12/17/18 09:31 Dose: 125 mg Discontinued Medications Diatrizoate Meglum/Diatrizoate Sod (Gastrografin 37%) 90 ml PO ONETIME ONE Stop: 12/14/18 14:44 Last Admin: 12/14/18 15:51 Dose: 90 ml Sodium Chloride (Normal Saline) 1,000 mls @ 999 mls/hr IV ONETIME ONE Stop: 12/14/18 15:12 Last Admin: 12/14/18 14:25 Dose: 999 mls/hr Sodium Chloride (Normal Saline) 1,000 mls @ 999 mls/hr IV ONETIME ONE Stop: 12/14/18 16:24 Last Admin: 12/14/18 15:38 Dose: 999 mls/hr Sodium Chloride (Normal Saline) 1,000 mls @ 999 mls/hr IV ONETIME ONE Stop: 12/14/18 17:50 Last Admin: 12/14/18 17:15 Dose: 999 mls/hr Levofloxacin/Dextrose 500 mg/ (Premix) 100 mls @ 100 mls/hr IV ONETIME ONE Stop: 12/14/18 18:33 Last Admin: 12/14/18 18:41 Dose: 100 mls/hr Metronidazole 500 mg/ Premix 100 mls @ 100 mls/hr IV Q8H [facility] Last Admin: 12/16/18 02:18 Dose: 100 mls/hr Sodium Chloride (Normal Saline) 1,000 mls @ 125 mls/hr IV ASDIRECTED [facility] Potassium Chloride/Sodium Chloride (Normal Saline With 20 Meq Kcl) 1,000 mls @ 125 mls/hr IV ASDIRECTED [facility] Last Admin: 12/16/18 10:24 Dose: 125 mls/hr Levofloxacin/Dextrose 750 mg/ (Premix) 150 mls @ 100 mls/hr IV Q24H [facility] Magnesium Sulfate 4 gm/ Premix 50 mls @ 12.5 mls/hr IV ONETIME ONE Stop: 12/15/18 11:37 Last Admin: 12/15/18 07:56 Dose: 12.5 mls/hr Potassium Chloride 10 meq/ (Premix) 100 mls @ 100 mls/hr IV Q1H [facility] Stop: 12/15/18 11:44 Last Admin: 12/15/18 13:17 Dose: 100 mls/hr Potassium Chloride/Sodium Chloride (Normal Saline With 20 Meq Kcl) 1,000 mls @ 50 mls/hr IV ASDIRECTED [facility] Last Admin: 12/16/18 21:28 Dose: 50 mls/hr Iopamidol (Isovue-300 (61%)) 100 ml IVPUSH ONETIME ONE Stop: 12/14/18 14:44 Last Admin: 12/14/18 15:51 Dose: 100 ml - Exam Physical Findings Comments:: General: 53 year old male in no acute distress sitting on bed Head: Normocephalic, atraumatic Eyes: EOMI, no scleral injection or periorbital edema ENT: oral mucosa is moist, no lesions - Plan Plan:: Assessment * 53-year-old male with six-week history of nonbloody diarrhea. Patient febrile on admission with history of night sweats. * WBC 19.76-->12.25-->9.1, CRP 21.1-->19.7 * Temperature 102 * C. 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 * Anal fissure * Hypomagnesemia/hypokalemia - resolved Plan * Admit to med floor on telemetry * Stop metronidazole * Vancomycin 125 mg 4 times a day for up to 14 days * Bismuth as needed for diarrhea * Stool cultures, ova and parasite * Normal saline with 20 mEq KCl at 125 mL an hour- titrate based on oral intake * Full liquid diet - advance to regular diet * Spoke with Deangelo Roy surgeon distribution center manager who agreed with plan and stated he would take him if he worsens. * CODE STATUS: full code * Length of stay 2-3 days
[2018-12-17] MEDS: Acetaminophen 325 MG Tab PO PRN (21:20)
[2018-12-18] MEDS: Vancomycin 125 MG Cap PO SCH ×2 (09:07→13:02)
[2018-12-18 12:59] VITALS: BP 117/79; PULSE 93
--- NOTE | 2018-12-18 13:44 | PCM.DCSUM1 ---
Discharge Summary - Hospital Course Diagnosis: Stroke: No - Discharge Data Discharge Disposition: Home, Self-Care 01 Condition: Good - Referral to Home Health Primary Care Physician: PCP None - Patient Instructions Diet: Usual Diet as Tolerated, Drink 8-10+ Glasses/Day, No Alcoholic Beverages Activity: As Tolerated Other/Special Instructions: 1. Please make sure to follow up with your new provider in the next 3-5 days. 2. For your anal fissure remember you need to do warm water sitz baths before and after bowel movement followed by gentle pat dry and application of the calmoseptine ointment (THIN layer) - Discharge Plan *PRESCRIPTION DRUG MONITORING PROGRAM REVIEWED*: No *COPY OF PRESCRIPTION DRUG MONITORING REPORT IN PATIENT EVANGELINA: No Prescriptions/Med Rec: Menthol/Zinc Oxide [Calmoseptine] 113 gm TOP ASDIRECTED #3 tube Vancomycin 125 mg PO QID #20 tab Home Medications: Home Meds Menthol/Zinc Oxide [Calmoseptine] 113 gm TOP ASDIRECTED #3 tube 12/18/18 [Rx] Vancomycin 125 mg PO QID #20 tab 12/18/18 [Rx] Forms: ED Department Discharge Referrals: Bassam Sun MD [Physician] - - Patient Data Vitals - Most Recent: Last Vital Signs Temp 36.5 C 12/18/18 12:58 Pulse 93 12/18/18 12:58 Resp 20 12/18/18 12:58 BP 117/79 12/18/18 12:58 Pulse Ox 98 12/18/18 12:58 Weight - Most Recent: 91.444 kg I&O - Last 24 hours: Intake & Output 12/17/18 12/18/18 12/18/18 22:59 06:59 14:59 Intake Total 800 800 360 Balance 800 800 360 Lab Results - Last 24 hrs: Laboratory Results - last 24 hr 12/18/18 12/18/18 Range/Units 05:29 05:29 WBC 8.99 (4.23-9.07) K/mm3 RBC 4.09 L (4.63-6.08) M/mm3 Hgb 11.8 L (13.7-17.5) gm/dl Hct 34.7 L (40.1-51.0) % MCV 84.8 (79.0-92.2) fl MCH 28.9 (25.7-32.2) pg MCHC 34.0 (32.2-35.5) g/dl RDW Std Deviation 39.9 (35.1-43.9) fL Plt Count 457 H (163-337) K/mm3 MPV 8.9 L (9.4-12.3) fl Neut % (Auto) 62.3 (34.0-67.9) % Lymph % (Auto) 23.2 (21.8-53.1) % [place] % (Auto) 12.9 H (5.3-12.2) % Eos % (Auto) 1.3 (0.8-7.0) Baso % (Auto) 0.3 (0.1-1.2) % Neut # (Auto) 5.59 H (1.78-5.38) K/mm3 Lymph # (Auto) 2.09 (1.32-3.57) K/mm3 [place] # (Auto) 1.16 H (0.30-0.82) K/mm3 Eos # (Auto) 0.12 (0.04-0.54) K/mm3 Baso # (Auto) 0.03 (0.01-0.08) K/mm3 Manual Slide Review Abnormal smear Sodium 134 L (136-145) mEq/L Potassium 4.1 (3.5-5.1) mEq/L Chloride 101 (98-107) mEq/L Carbon Dioxide 23 (21-32) mEq/L Anion Gap 14.1 (5-15) BUN 9 (7-18) mg/dL Creatinine 0.7 (0.7-1.3) mg/dL Est Cr Clr Drug Dosing 120.23 mL/min Estimated GFR (MDRD) > 60 (>60) mL/min BUN/Creatinine Ratio 12.9 L (14-18) Glucose 89 (74-106) mg/dL Calcium 8.4 L (8.5-10.1) mg/dL Magnesium 1.8 (1.8-2.4) mg/dl Total Bilirubin 0.2 (0.2-1.0) mg/dL AST 36 (15-37) U/L ALT 38 (16-63) U/L Alkaline Phosphatase 73 (46-116) U/L C-Reactive Protein 6.7 H* (<1.0) mg/dL Total Protein 5.7 L (6.4-8.2) g/dl Albumin 1.9 L (3.4-5.0) g/dl Globulin 3.8 gm/dL Albumin/Globulin Ratio 0.5 L (1-2) RAFAEL Results - Last 24 hrs: Microbiology 12/14/18 15:08 Aerobic Blood Culture - Preliminary Blood - Venous - Lab Draw NO GROWTH AFTER 3 DAYS Anaerobic Blood Culture - Preliminary NO GROWTH AFTER 3 DAYS 12/14/18 15:00 Aerobic Blood Culture - Preliminary Blood - Venous NO GROWTH AFTER 3 DAYS Anaerobic Blood Culture - Preliminary NO GROWTH AFTER 3 DAYS 12/14/18 18:55 Stool Culture - Final Stool / Feces NORMAL ENTERIC LEEANN. NO SALMONELLA, SHIGELLA, CAMPYLOBACTER, E.COLI O157 OR YERSINIA ISOLATED. Shiga Toxin I - Final NEGATIVE FOR SHIGA TOXIN 1 REFERENCE RANGE: NEGATIVE Shiga Toxin II - Final NEGATIVE FOR SHIGA TOXIN 2 REFERENCE RANGE: NEGATIVE Med Orders - Current: Current Medications Acetaminophen (Tylenol) 650 mg PO Q4H PRN PRN Reason: Pain (Mild 1-3)/fever Last Admin: 12/17/18 21:20 Dose: 650 mg Hydrocodone Bitart/Acetaminophen ([place] 325-5 Mg) 1 tab PO Q4H PRN PRN Reason: Pain (moderate 4-6) Bismuth Subsalicylate (Pepto Bismol) 30 ml PO Q2H PRN PRN Reason: Diarrhea Last Admin: 12/16/18 20:21 Dose: 30 ml Ibuprofen (Motrin) 600 mg PO Q6H PRN PRN Reason: Pain/Fever Ondansetron HCl (Zofran) 4 mg IV Q4H PRN PRN Reason: Nausea/Vomiting Sodium Chloride (Saline Flush) 10 ml FLUSH ASDIRECTED PRN PRN Reason: Keep Vein Open Last Admin: 12/14/18 15:51 Dose: 10 ml Vancomycin HCl (Vancomycin) 125 mg PO QID DAVE Last Admin: 12/18/18 13:02 Dose: 125 mg Discontinued Medications Diatrizoate Meglum/Diatrizoate Sod (Gastrografin 37%) 90 ml PO ONETIME ONE Stop: 12/14/18 14:44 Last Admin: 12/14/18 15:51 Dose: 90 ml Sodium Chloride (Normal Saline) 1,000 mls @ 999 mls/hr IV ONETIME ONE Stop: 12/14/18 15:12 Last Admin: 12/14/18 14:25 Dose: 999 mls/hr Sodium Chloride (Normal Saline) 1,000 mls @ 999 mls/hr IV ONETIME ONE Stop: 12/14/18 16:24 Last Admin: 12/14/18 15:38 Dose: 999 mls/hr Sodium Chloride (Normal Saline) 1,000 mls @ 999 mls/hr IV ONETIME ONE Stop: 12/14/18 17:50 Last Admin: 12/14/18 17:15 Dose: 999 mls/hr Levofloxacin/Dextrose 500 mg/ (Premix) 100 mls @ 100 mls/hr IV ONETIME ONE Stop: 12/14/18 18:33 Last Admin: 12/14/18 18:41 Dose: 100 mls/hr Metronidazole 500 mg/ Premix 100 mls @ 100 mls/hr IV Q8H [facility] Last Admin: 12/16/18 02:18 Dose: 100 mls/hr Sodium Chloride (Normal Saline) 1,000 mls @ 125 mls/hr IV ASDIRECTED [facility] Potassium Chloride/Sodium Chloride (Normal Saline With 20 Meq Kcl) 1,000 mls @ 125 mls/hr IV ASDIRECTED [facility] Last Admin: 12/16/18 10:24 Dose: 125 mls/hr Levofloxacin/Dextrose 750 mg/ (Premix) 150 mls @ 100 mls/hr IV Q24H [facility] Magnesium Sulfate 4 gm/ Premix 50 mls @ 12.5 mls/hr IV ONETIME ONE Stop: 12/15/18 11:37 Last Admin: 12/15/18 07:56 Dose: 12.5 mls/hr Potassium Chloride 10 meq/ (Premix) 100 mls @ 100 mls/hr IV Q1H [facility] Stop: 12/15/18 11:44 Last Admin: 12/15/18 13:17 Dose: 100 mls/hr Potassium Chloride/Sodium Chloride (Normal Saline With 20 Meq Kcl) 1,000 mls @ 50 mls/hr IV ASDIRECTED [facility] Last Admin: 12/16/18 21:28 Dose: 50 mls/hr Iopamidol (Isovue-300 (61%)) 100 ml IVPUSH ONETIME ONE Stop: 12/14/18 14:44 Last Admin: 12/14/18 15:51 Dose: 100 ml
== END 2018-12-18 14:41 | disposition home or self-care (01) | DRG 248 ==
LOC: JD.ED 13:41 → JD.MS 17:41
PROVIDERS: ADMIT Family Medicine; ATTEND Family Medicine
DX: A04.72 Enterocolitis due to Clostridium difficile, not specified as recurrent (principal); H91.90 Unspecified hearing loss, unspecified ear; K21.9 Gastro-esophageal reflux disease without esophagitis; M19.90 Unspecified osteoarthritis, unspecified site; E66.9 Obesity, unspecified; E86.0 Dehydration; E86.1 Hypovolemia; E83.42 Hypomagnesemia; E87.6 Hypokalemia; K60.2 Anal fissure, unspecified; Z79.899 Other long term (current) drug therapy; Z90.49 Acquired absence of other specified parts of digestive tract; Z79.4 Long term (current) use of insulin; Z68.29 Body mass index [BMI] 29.0-29.9, adult
CPT/HCPCS: 36415; 71045; 71045-26; 74177; 74177-26; 80053; 81001; 83605; 83735; 83880; 84484; 85007; 85025; 85027; 85610; 85730; 86140; 87040; 87046; 87177; 87328; 87329; 87427; 87493; 89055; 93005; 93010; 96360; 96361; 99284; 99285-25; A9270-GY; J1956; J3475; J3480; J3490; J7040; Q9963; Q9967

== ENCOUNTER 2021-09-25 10:13 | Day surgery (SDC) | payer BC ==
[~2021-09-25 10:13] MED LIST changes: +Acetaminophen 325 MG Tab PO SCH; +Morphine 8 MG, EPINEPHrine 0.3 MG, Cefuroxime 750 MG, Ketorolac 30 MG, Sodium Chloride ... PRN; +Pregabalin 25 MG Cap PO SCH; +Sodium Chloride 0.9% 10 ML Syringe FLUSH SCH; +ceFAZolin 2 GM Vial ONE; +oxyCODONE ER 10 MG TAB.ER PO SCH
[2021-09-25] MEDS ORDERED: Ondansetron 4 MG/2 ML SDV ONE (10:32)
[2021-09-25] MEDS ORDERED: Ketorolac 30 MG/ML SDV ONE (10:32)
[2021-09-25] MEDS ORDERED: Vancomycin 1 GM SDV ONE (11:34)
[2021-09-25] MEDS ORDERED: Ropivacaine 0.5% 5 MG/ML 30 ML SDV ONE (11:49)
[2021-09-25] MEDS ORDERED: EPINEPHrine 1 MG/ML SDV ONE (11:50)
[2021-09-25] MEDS ORDERED: Lactated Ringers 1,000 ML ONE ×2 (12:36→13:42)
[2021-09-25] MEDS ORDERED: fentaNYL 100 MCG/2 ML SDV IVPUSH PRN (12:58)
[2021-09-25] MEDS ORDERED: Ondansetron 4 MG/2 ML SDV IVPUSH PRN (12:58)
[2021-09-25] MEDS ORDERED: diphenhydrAMINE 50 MG/ML SDV IVPUSH PRN (12:58)
[2021-09-25] MEDS ORDERED: Midazolam 1 MG/ML 2 ML SDV ONE (13:28)
[2021-09-25] MEDS ORDERED: Propofol 200 MG/20 ML SDV ONE (13:35)
[2021-09-25] MEDS ORDERED: oxyCODONE 5 MG Tab PO ONE (14:45)
[2021-09-25 16:56] VITALS: BP 104/71; PULSE 72
== END 2021-09-25 16:50 | disposition home or self-care (01) ==
LOC: JD.SDS 10:13
PROVIDERS: ATTEND Orthopaedic Surgery
DX: E55.9 Vitamin D deficiency, unspecified (principal); M17.12 Unilateral primary osteoarthritis, left knee; M22.42 Chondromalacia patellae, left knee; D64.9 Anemia, unspecified; K50.90 Crohn's disease, unspecified, without complications; I10 Essential (primary) hypertension; Z87.891 Personal history of nicotine dependence; Z79.899 Other long term (current) drug therapy; Z98.890 Other specified postprocedural states
CPT/HCPCS: 0055T; 27447; 73560; 97110; 97116; 97161; A9270; C1713; C1776; J0171; J0690; J0697; J1885; J2250; J2270; J2405; J2704; J2795; J3010; J3370; J7120; 01402; 64450; 76942